=== PATIENT | female | born 1965 | race Caucasian/White ===

== ENCOUNTER 2018-09-08 14:24 | Inpatient (IN) | payer BC ==
[~2018-09-08 14:24] MED LIST: ISOVUE-370 76%-LOCM 1 ML ONE
--- NOTE | 2018-09-08 16:01 | CT ---
CT OF BRAIN PERFORMED WITHOUT CONTRAST ENHANCEMENT: Date: 09/08/18 HISTORY: Stroke alert. Confusion and memory problems. COMPARISON: 04/22/13 study. FINDINGS: The ventricular and cisternal system is within normal limits. There are no signs of intracerebral hem orrhage or extra-axial fluid collections. The mastoid air cells are developmentally poorly aerated. T he visualized sinuses are clear. IMPRESSION: No acute intracranial abnormalities. Findings telephoned to Dr. Soriano at 1552 hours. CODE CR. POS: [facility]
[2018-09-08 16:08] LABS: Base Excess-Venous 7.4 mmol/L (0 (+/- 2.5)); Bicarbonate (HCO3v) 30.8 mmol/L (22.0-29.0); CO2 Tension (PvCO2) 38.1 mmHg (41.0-51.0); Calcium, Ionized 1.02 mmol/L (1.12-1.32); Hemoglobin - Calc 14.1 g/dL (12.0-18.0); Lactate 1.38 mmol/L (0.50-2.20); O2 Tension (PvO2) 38.6 mmHg (35.0-45.0); pH (Venous) 7.516 (7.35-7.45); vO2 Saturation-calc 78.8 % (94-98)
[2018-09-08 16:18] LABS: Hemoglobin 13.9 g/dL (12.0-16.0); Mean Corpuscular HGB CONC 36.1 g/dL (32.0-36.0); Mean Corpuscular Hemoglobin 38.5 pg (27.0-31.0); Mean Platelet Volume 8.4 fL (7.4-10.4); Platelet Count 157 thou/uL (130-400); RBC Distribution Width 14.1 % (11.5-14.5); Red Blood Cell (RBC) Count 3.61 mill/uL (4.20-5.40); White Blood Cell (WBC) Count 12.5 thou/uL (4.8-10.8)
--- NOTE | 2018-09-08 16:22 | RAD ---
AP VIEW CHEST: 09/08/18 HISTORY: Altered mental status. Chest pain. AP view chest is obtained on 09/08/18. Comparison made to a previous exam from 04/23/13. AP view chest demonstrates the lungs to be well aerated. No evidence of active intrathoracic disease seen. No evidence of effusions, pneumonia, or pneumothorax seen. IMPRESSION: Unremarkable AP view chest. POS: [facility]
[2018-09-08] MEDS ORDERED: Pot Chloride/Pot Bicarb/Cit Ac 25 mEq Effervescent Tablet ONE (16:26)
[2018-09-08] MEDS ORDERED: Ondansetron PF 4 MG/2 ML Vial ONE (16:26)
[2018-09-08] MEDS ORDERED: Promethazine HCl 25 MG/ML VIAL ONE (16:36)
[2018-09-08] MEDS ORDERED: Pantoprazole 40 MG VIAL ONE (16:36)
[2018-09-08 16:41] LABS: ALT (SGPT) 188 U/L (8-55); AST (SGOT) 219 U/L (5-34); Acetaminophen Less than 6.0 mcg/mL (10.0-30.0); Albumin 4.5 g/dL (3.5-5.0); Alcohol Less than 10 mg/dL (Less than 10); Alkaline Phosphatase 78 U/L (40-150); Anion Gap 21 mmol/L (10-20); BUN (Urea Nitrogen) 32 mg/dL (9.8-20.1); Bilirubin, Total 0.7 mg/dL (0.2-1.2); Calc. Creatinine Clearance 0 mL/min (70-130); Carbon Dioxide 27 mmol/L (22-29); Chloride 75 mmol/L (98-107); Estimated GFR-MDRD 47; Globulin 2.6 g/dL (2.4-3.5); Glucose 106 mg/dL (70-105); Protein, Total 7.1 g/dL (6.0-8.3); Salicylate Less than 8.0 mg/dL (15.0-30.0); Sodium 121 mmol/L (136-145)
[2018-09-08 16:43] LABS: Band 8 % (5-11); Lymphocytes 16 % (21-51); MDiff Complete? YES; Macrocytosis SLIGHT = 6-15 cells (100X) (0-5/hpf); Monocytes 10 % (0-10); Neutrophil 65 % (42-75); Platelet Morphology Comment Appears Adequate; Polychromasia SLIGHT = 2-3 cells (100X) (0-2/hpf); Reactive Lymphocytes 1 % (0-10); Toxic Granulation SLIGHT
--- NOTE | 2018-09-08 16:43 | CT ---
CT ANGIOGRAM HEAD WITH CONTRAST CT ANGIOGRAM NECK WITH CONTRAST: Date: 09/08/18 HISTORY: 52-year-old female with altered mental status and worsening generalized weakness, confusion, and cem ry loss. Dr. Alonso gave the stroke alert protocol report by telephone to the person answering Dr. Gil' teleph one at 1612 hours on 09/08/18. TECHNIQUE: IV injection of 100 mL [id number]. Arterial bolus chasing technique scan from several centimeters inferior to the vandana to vertex of he ad. Coronal and sagittal 3D MIP reconstructions. FINDINGS: No evidence of occlusion or high grade stenosis of M1 segments of bilateral middle cerebral arteries. No acquired short segmental focal stenosis of the A1 and A2 segments of bilateral anterior cerebral a rteries. The right anterior cerebral artery is developmentally diminutive. Bilateral carotid siphons, basilar artery, posterior cerebral arteries, and superior cerebellar arter ies, appear normal. Intracranial left vertebral artery is normal. The right vertebral artery is diminutive and terminates in PICA. The left vertebral artery is dominant and normal in caliber. No stenosis of the bilateral carotid siphons or the cervical portions of bilateral internal carotid a rteries, common carotid arteries, brachiocephalic artery, or right subclavian artery. No significant calcified plaque visualized. IMPRESSION: Essentially normal. CODE CR. POS: [facility]
[2018-09-08] MEDS ORDERED: Potassium Chloride 20 MEQ in Premix Bag 1 BAG IVPB SCH (17:00)
[2018-09-08] MEDS ORDERED: Ketorolac Tromethamine 30 MG/ML VIAL ONE (18:43)
[2018-09-08 18:53] LABS: Bilirubin Negative (Negative); Blood, Urine Negative (Negative); Clarity CLEAR (Clear); Glucose, Urine (Dipstick) Negative (Negative); Leukocyte Negative (Negative); Nitrite Negative (Negative); Protein, Urine (Dipstick) Negative (Neg-Trace); Specific Gravity, Urine 1.031 (1.002-1.036); Urobilinogen 0.2 mg/dL (0.2-1.0)
[2018-09-08 19:05] LABS: Amphetamine Not Detected (NotDetected); Barbiturates Screen Not Detected (NotDetected); Benzodiazepine Screen Not Detected (NotDetected); Cocaine Metabolite Screen Not Detected (NotDetected); Medtox Control Line Valid? VALID (VALID); Medtox Reader # READER 4; Methadone Not Detected (NotDetected); Methamphetamine Not Detected (NotDetected); Opiate Screen Not Detected (NotDetected); Oxycodone Screen Not Detected (NotDetected); Phencyclidine (PCP) Not Detected (NotDetected); THC/Cannabinoid Screen Not Detected (NotDetected); Tricyclic Screen Not Detected (NotDetected)
[2018-09-08] MEDS ORDERED: Ondansetron ODT 4 MG TAB SL PRN (19:42)
[2018-09-08] MEDS ORDERED: Ondansetron PF 4 MG/2 ML Vial IVP PRN ×2 (19:42→20:05)
[2018-09-08] MEDS ORDERED: Acetaminophen 325 MG TAB PO PRN (19:42)
[2018-09-08] MEDS ORDERED: NS 0.9% w/ 20 MEQ KCL 1,000 ML IV SCH (19:42)
[2018-09-08] MEDS ORDERED: Sodium Chloride 0.9% 1,000 ML IV SCH (20:05)
[2018-09-08] MEDS ORDERED: Pantoprazole 40 MG VIAL IVP SCH (20:05)
[2018-09-08] MEDS ORDERED: Acetaminophen 650 MG Suppository PR PRN (20:05)
[2018-09-08] MEDS ORDERED: Loperamide HCl 2 MG CAP PO PRN (20:05)
[2018-09-08] MEDS ORDERED: Aspirin 81 mg Enteric Coated Tablet PO SCH (20:05)
[2018-09-08] MEDS ORDERED: Senokot S 8.6-50 MG TAB PO PRN (20:05)
[2018-09-08 20:36] LABS: Anion Gap 16 mmol/L (10-20); BUN (Urea Nitrogen) 26 mg/dL (9.8-20.1); Calc. Creatinine Clearance 0 mL/min (70-130); Calcium 8.9 mg/dL (7.8-10.44); Carbon Dioxide 27 mmol/L (22-29); Chloride 84 mmol/L (98-107); Estimated GFR-MDRD 51; Glucose 88 mg/dL (70-105); Magnesium 1.6 mg/dL (1.6-2.6); Sodium 124 mmol/L (136-145)
[2018-09-08 20:40] LABS: Potassium 2.5 mmol/L (3.5-5.1)
[2018-09-08] MEDS ORDERED: Potassium Chloride 20 MEQ/100 ML PREMIX BAG IVPB SCH (21:00)
[2018-09-08] MEDS: Atenolol 50 MG TAB PO SCH (21:13)
[2018-09-08] MEDS ORDERED: Promethazine HCl 25 MG in Sodium Chloride 0.9% 50 ML IVPB PRN (21:30)
--- NOTE | 2018-09-08 21:31 | PDOC.EVN ---
Event Note - Event Note Event Note: RN called - Patient unable to tolerate PO Potassium. Added 40 meq in IV NS for 1 liter.
--- NOTE | 2018-09-08 21:44 | HP ---
PRIMARY CARE PHYSICIAN: Dr. J Carlos Ferrer at [facility] [place]. CHIEF COMPLAINT: Weakness and trouble swallowing. HISTORY OF PRESENT ILLNESS: This is a 52-year-old white female with a history of hypertension and paroxysmal SVT, who has had about 2 weeks of severe nausea and vomiting. At one point, she was vomiting 20 times per day, vomiting up bilious fluid, but never any blood or coffee-grounds emesis. She reports that the vomiting calmed down about 3 days ago. She does not really remember much of the time before that because it was so intense. At that time, she noted whenever she stood up she felt a little bit weak; her left side felt odd, and maybe a little weaker than the right. She also felt dizzy with standing and she reports she started to get a tightness in her throat and all the way down her esophagus. This prevented her from swallowing any solids. She has had to drink only liquids since then and dissolve her pills in water before taking them in order to get them down. She reports that over the last 3 days, she has also developed severe watery diarrhea, about 10 times yesterday including incontinence. She has only had it 4 times a day and she has not been incontinent today. She had significantly decreased urine output with the vomiting, has urinated a little bit more today, but not much. She is only able to take little sips of water. She also feels weak all over and says she feels a little confused. The patient was evaluated in the emergency room. She initially had a CT of the brain, which was negative and a CT angiography, which was also negative. Her lab work showed a low sodium of 121 and a low potassium of 2.0 and she is getting IV replacement right now, and is being admitted to the stroke floor. PAST MEDICAL HISTORY: 1. Hypertension. 2. Paroxysmal SVT, controlled if she takes daily atenolol. 3. Previous kidney stones. 4. Previous hypokalemia. PAST SURGICAL HISTORY: 1. Tonsillectomy. 2. Cholecystectomy. 3. Hysterectomy. 4. Appendectomy. 5. Stents for kidney stone removal. 6. Percutaneous removal of some disk fragments from her lumbar spine in the . SOCIAL HISTORY: The patient used to smoke tobacco and marijuana, but quit in her 20s when she started having children. She denies any current regular use, though she did have some marijuana brownies about a year ago; this one brought from [place]. The patient is , lives with her . She has 4 kids who are all grown and out of the house. FAMILY HISTORY: Positive for diabetes and hypertension in multiple family members and her maternal grandfather who had of heart attack at 65 years old. ALLERGIES: PENICILLIN CAUSES WHEEZING, CHEST TIGHTNESS, AND NUMBNESS. CURRENT MEDICATIONS: 1. Atenolol 50 mg twice a day. 2. Lisinopril 10 mg daily. 3. VESIcare p.r.n. REVIEW OF SYSTEMS: CONSTITUTIONAL: No fevers, no chills. She has had the weakness as per the HPI. EYES: No double vision or blurred vision. ENT: She has had some runny nose and some sore throat as per HPI and difficulty swallowing as per HPI. CARDIOVASCULAR: She has the tightness in her chest that goes up into her throat, it is worse with swallowing anything, but no other chest pain. No palpitations or racing. PULMONARY: No coughing, no wheezing, no shortness of breath. GASTROINTESTINAL: See HPI. Her stomach now is a little bit sore, but not hurting her currently. GENITOURINARY: See HPI. No dysuria or hematuria. MUSCULOSKELETAL: No muscle aches or joint pains that she noted. SKIN: No rashes or other lesions she has noted. NEUROLOGIC: See HPI. No numbness or tingling anywhere. PHYSICAL EXAMINATION: VITAL SIGNS: Blood pressure 109/74, pulse 78, respirations 20, O2 saturation 98% on room air, temperature 98.7. CONSTITUTIONAL: She does report some severe pain in her throat and right shoulder, but does not look uncomfortable or in any distress. GENERAL: This is a well developed, obese white female. HEENT: Pupils equal, round, and reactive to light. Oropharynx with some mild erythema in the posterior oropharynx, but no swelling noted. No swelling of the tongue. No exudates. NECK: Supple. No lymphadenopathy. No thyroid nodules or enlargement. No JVD. No significant tenderness to palpation. HEART: Regular rate and rhythm. No murmurs, rubs, or gallops. LUNGS: Clear to auscultation bilaterally. No wheezes, crackles, or rhonchi. ABDOMEN: Soft and nontender to palpation. Normoactive bowel sounds. No hepatosplenomegaly or other masses. EXTREMITIES: No clubbing, cyanosis, or edema. SKIN: No rashes or other lesions noted. NEUROLOGIC: Cranial nerves are intact 2 through 12 bilaterally without any facial droop. Her reflexes are equal in all extremities. She does report some weakness in her left arm and left leg compared to her right; however, she uses these easily when not examined. When I did examine, she would then let the left suddenly drop to the bed. When I asked her to life up, she would lift the left up much slower and when I asked for resistance, she would start resisting equally just a little bit on both sides and then she would start increasing her strength on the right side. PSYCHIATRIC: The patient is alert and oriented x3. She has an odd affect. DIAGNOSTIC STUDIES: White blood cell count 12.5 with normal differential. Normal hemoglobin and hematocrit. Normal platelets. Her MCV of her red blood cells is elevated though at 107. Blood gas initially showed a pH of 7.5 and a pCO2 of 38, and apparently the patient was hyperventilating a little bit earlier in the emergency room. She looks much more comfortable now. Complete metabolic panel notable for a sodium of 121, potassium 2.0, chloride of 75, bicarb of 27, anion gap of 21, BUN of 32, creatinine of 1.21; recheck an hour later on her venous blood gas was 1.17; glucose of 106, and AST is elevated at 218, ALT at 188. The rest was normal. Her ammonia was negative. Her troponin was negative x1. Her TSH was elevated at 7.2. Urinalysis was positive only for some ketones. Urine drug screen was negative for any illicit drugs. Her plasma alcohol was negative as was her salicylates. CT of the brain and CT angiography of the head as above and were negative. Chest x-ray; I did review the chest x-ray done in the emergency room along with the radiologist's report; it shows no active cardiopulmonary disease. EKG; I did review the EKG done in the emergency room; it does show normal sinus rhythm and does have some QT prolongation and some ST abnormalities, but no elevations and it does not have any evidence of T-wave abnormalities from the low potassium. The patient's EKG does not show any signs of flattening of the T-waves at this time. ASSESSMENT AND PLAN: 1. Hyponatremia. This may be the source of patient's odd affect and possible psychogenic source of her weakness on the left side, likely due to her vomiting and diarrhea with volume depletion as well as poor salt intake. We will continue IV fluid replacement with normal saline. This is not severely low and so she would not be in any significant risk from replacement too quickly. 2. Hypokalemia, likely due to the diarrhea as well as the previous vomiting. The patient has a history of losing potassium easily. We will replete her IV since she cannot swallow the large tablets right now. She already got a dose in the emergency room. I will check potassium now and then give her another potassium cocktail depending on the results. 3. Left-sided weakness, I believe due to her exam, this is most likely psychogenic; however, she does have a history of hypertension and so we will go ahead and get an MRI of the brain and a Neurology consult to make sure she has not had an ischemic event; it was done multiple days ago and she is far beyond the window of any sort of treatment. I will go ahead and start the patient on a baby aspirin a day and check her lipid profile in the morning. 4. Sore throat with dysphagia. The patient reports tightness of her throat and pain. This is most likely from the trauma from the repetitive vomiting over the last 2 weeks. She is able to take fluids right now and is not having any trouble with breathing. We will give her a small dose of anti-inflammatory for pain of Toradol, anti-inflammatory for pain, though we will keep an eye on her creatinine with this and see if this improves. We will also have Speech Therapy evaluate her swallow. If she continues to have severe pain and inability to swallow food, then we will get a Gastroenterology consult for endoscopy. 5. Nausea, vomiting, and diarrhea; most likely some sort of infectious etiology, though the length and severity of the vomiting opens the possibility of some other etiology as well. The nausea and vomiting seemed to have resolved at this point. We will give her Zofran as needed if she does have any more and the diarrhea has calmed down today as well. We will do stool studies should she have increasing amounts of diarrhea or worsening symptoms in the hospital. 6. Hypertension. We will resume the patient's home blood pressure medications. 7. History of paroxysmal supraventricular tachycardia. We will continue the patient's atenolol and we will watch her on desk monitor. 8. Gastrointestinal prophylaxis and treatment of this esophageal spasm. We will start the patient on Protonix IV. 9. Deep venous thrombosis prophylaxis. We will put the patient on SCDs while in bed and encourage ambulation. 10. Code status; I did discuss this with the patient. She is a full code. Should she be incapacitated, her will be her medical decision maker; his name is Bc Hawley. Job ID: [id number]
[2018-09-08 22:09] LABS: HBCM Index 0.05 S/CO (0-0.79); HBSAg Index 0.24 S/CO (0-0.99); Hep A IgM AB Non-Reactive (NonReactive); Hep A IgM S/CO 0.07 S/CO (0-0.79); Hep B Surf Ag Non-Reactive S/CO (NonReactive); Hep C IgG Ab Non-Reactive (NonReactive); Hep C Index 0.04 S/CO (0-0.79); Hepatitis B Core IgM Abs Non-Reactive (NonReactive)
--- NOTE | 2018-09-08 22:34 | ULT ---
HISTORY: Elevated liver function enzymes. Multiple longitudinal and transverse images of the right upper quadrant of the abdomen is obtained us ing multihertz curvilinear transducer. Real time, color flow and spectral waveform doppler analysis demonstrates hepatomegaly. Fibrofatty ch anges seen in the liver. Normal hepatopedal flow is seen. The gallbladder is unremarkable. No evidence of gallstones seen. The common bile duct is normal size measuring 3.7 mm. The visualized portions of the pancreas is unremarkable. No evidence of ascites seen. The right kidne y is unremarkable. IMPRESSION: Hepatomegaly. POS: [facility]
[2018-09-09] MEDS: NS 0.9% w/ 40 MEQ KCL 1,000 ML IV SCH ×2 (00:30→09:12)
[2018-09-09 05:41] LABS: Anion Gap 20 mmol/L (10-20); BUN (Urea Nitrogen) 24 mg/dL (9.8-20.1); Band 1 % (5-11); Calc. Creatinine Clearance 95 mL/min (70-130); Calcium 8.8 mg/dL (7.8-10.44); Carbon Dioxide 22 mmol/L (22-29); Cardiac Risk 2.4 (Less than 4.5); Chloride 89 mmol/L (98-107); Cholesterol 146 mg/dl (< 200 Desired); Estimated GFR-MDRD 62; Glucose 80 mg/dL (70-105); HDL Cholesterol 62 mg/dL (>60 Neg Risk); Hemoglobin 11.9 g/dL (12.0-16.0); Lymphocytes 28 % (21-51); MDiff Complete? YES; Macrocytosis SLIGHT = 6-15 cells (100X) (0-5/hpf); Mean Corpuscular HGB CONC 35.7 g/dL (32.0-36.0); Mean Corpuscular Hemoglobin 38.5 pg (27.0-31.0); Mean Platelet Volume 8.2 fL (7.4-10.4); Monocytes 12 % (0-10); Neutrophil 59 % (42-75); Platelet Count 138 thou/uL (130-400); Platelet Morphology Comment Appears Adequate; RBC Distribution Width 14.2 % (11.5-14.5); Red Blood Cell (RBC) Count 3.08 mill/uL (4.20-5.40); Sodium 128 mmol/L (136-145); White Blood Cell (WBC) Count 9.2 thou/uL (4.8-10.8)
[2018-09-09 05:44] LABS: Potassium 2.8 mmol/L (3.5-5.1)
[2018-09-09] MEDS ORDERED: Potassium Chloride 40 MEQ in Premix Bag 1 BAG IVPB SCH (05:45)
[2018-09-09 05:48] LABS: Free T4 (Free Thyroxine) 1.01 ng/dL (0.70-1.48)
[2018-09-09 05:49] LABS: Triglycerides 97 mg/dL (Less than 150)
[2018-09-09] MEDS ORDERED: Magnesium 2 GM/50 ML 2 GM in Premix Bag 1 BAG IVPB SCH (06:00)
[2018-09-09] MEDS ORDERED: Magnesium Sulfate 2 GM in Sodium Chloride 0.9% 100 ML IVPB SCH (06:00)
[2018-09-09 06:01] LABS: LDL Cholesterol, Calculated 65 mg/dL
[2018-09-09] MEDS: Potassium Chloride 20 MEQ in Premix Bag 1 BAG IVPB SCH ×2 (06:20→13:01)
[2018-09-09] MEDS: Aspirin 81 mg Enteric Coated Tablet PO SCH (09:01)
[2018-09-09] MEDS: Atenolol 50 MG TAB PO SCH ×3 (09:01→20:48)
[2018-09-09] MEDS: Pantoprazole 40 MG VIAL IVP SCH (09:02)
[2018-09-09] MEDS: Enoxaparin Sodium 30 MG/0.3 ML SYRINGE SC SCH (09:10)
[2018-09-09] MEDS: Sodium Chloride 0.9% 1,000 ML IV SCH ×2 (09:11→23:32)
[2018-09-09] MEDS ORDERED: Promethazine HCl 25 MG/ML VIAL IM/IV PRN (09:27)
--- NOTE | 2018-09-09 13:14 | CON ---
DATE OF CONSULTATION: 09/09/2018 NEUROLOGY CONSULTATION CONSULTING PHYSICIAN: Hospitalist Service. IMPRESSION: Psychogenic weakness. PLAN: As you care to pursue. HISTORY OF PRESENT ILLNESS: Ms. Hawley is a 52-year-old white female, who came in with a history of reported frequent vomiting and diarrhea. She was noted to be hyponatremic and hypokalemic. She reports that she felt like her left side was weak. CT and CTA of the brain and carotids were all unremarkable. PAST MEDICAL HISTORY: Otherwise negative. ALLERGIES: PENICILLIN. MEDICATIONS: 1. Lisinopril. 2. Atenolol. SOCIAL HISTORY: Unremarkable. FAMILY HISTORY: Noncontributory. REVIEW OF SYSTEMS: Ten system review of systems is, otherwise, negative. PHYSICAL EXAMINATION: VITAL SIGNS: Blood pressure 91/54, pulse 61, respirations 20, and temperature 98.8. HEENT: Within normal limits. NECK: Supple. EXTREMITIES: No cyanosis, clubbing, or edema. NEUROLOGIC: She is alert and appropriate. She follows commands appropriately. Her speech was fluent and clear. There was no cranial nerve asymmetry in testing. On her upper extremity, she inappropriately had drift and faint weakness on the left side. No abnormal movements were seen. Gait was not tested. DIAGNOSTIC DATA: Laboratory studies were reviewed. Imaging was reviewed. SUMMARY: A middle-aged woman with faint left-sided weakness. We can pursue further testing as you deem fit. Job ID: [id number]
--- NOTE | 2018-09-09 13:16 | PDOC.PN ---
- Subjective Encounter Start Date: 09/09/18 Encounter Start Time: 07:00 Pt seen for followup re: hyponatremia. Reports difficulty eating. Denies chest pain. - Objective Resuscitation Status - Order Detail: 09/08/18 18:43 Resuscitation Status Routine Resuscitation Status: FULL: Full Resuscitation Discussed with: Patient KELIN Reviewed: Yes Vital Signs & Weight: Vital Signs (12 hours) Temp Pulse Resp BP Pulse Ox 09/09/18 11:42 98.8 F 97 16 109/73 99 09/09/18 09:06 61 09/09/18 07:44 98.8 F 61 20 102/71 94 L 09/09/18 05:00 91/54 L 09/09/18 04:50 99.5 F 73 14 80/46 L 98 Weight Weight 192 lb 11.2 oz I&O: 09/08/18 09/09/18 09/10/18 06:59 06:59 06:59 Intake Total 1250 Balance 1250 Result Diagrams: 09/09/18 04:19 09/09/18 04:19 Additional Labs: Accuchecks 09/08/18 15:48 POC Glucose 129 H EKG Reviewed by me: Yes (Tele: NSR) Phys Exam - Physical Examination Constitutional: NAD HEENT: moist MMs, sclera anicteric, oral pharynx no lesions, 2+ tonsils Neck: no nodes, no JVD, supple, full ROM Respiratory: clear to auscultation bilateral Cardiovascular: RRR, no rub S1, S2 Gastrointestinal: soft, non-tender, no distention, positive bowel sounds Neurological: moves all 4 limbs Psychiatric: normal affect, A&O x 3 Dx/Plan (1) Hyponatremia Code(s): E87.1 - HYPO-OSMOLALITY AND HYPONATREMIA Status: Acute Comment: sodium improved to 128 today (2) Hypokalemia Code(s): E87.6 - HYPOKALEMIA Status: Acute Comment: replace potassium and recheck (3) Left-sided weakness Code(s): R53.1 - WEAKNESS Status: Acute Comment: await neurology consult (4) Dysphagia Code(s): R13.10 - DYSPHAGIA, UNSPECIFIED Status: Acute Comment: await GI consult (5) Abnormal LFTs Code(s): R94.5 - ABNORMAL RESULTS OF LIVER FUNCTION STUDIES Status: Acute Comment: isolated transaminitis, check CK level. (6) HTN (hypertension) Code(s): I10 - ESSENTIAL (PRIMARY) HYPERTENSION Status: Chronic Comment: controlled - Plan * . Review of Systems - Review of Systems Constitutional: weakness. negative: fever, chills, sweats, malaise Respiratory: negative: Cough, Shortness of Breath, SOB with Excertion, Pleuritic Pain, Wheezing Cardiovascular: negative: chest pain, palpitations, orthopnea, paroxysmal nocturnal dyspnea, edema, light headedness Gastrointestinal: Other (dysphagia). negative: Nausea, Vomiting, Abdominal Pain , Diarrhea, Constipation, Melena, Hematochezia Genitourinary: negative: Dysuria, Frequency, Incontinence, Hematuria, Retention Neurological: Weakness. negative: Numbness, Incoordination, Change in Speech, Confusion, Seizures - Medications/Allergies Allergies/Adverse Reactions: Allergies Allergy/AdvReac Type Severity Reaction Status Date / Time Penicillins Allergy Verified 09/09/18 01:46 Medications: Current Medications Acetaminophen (Tylenol) 650 mg PO Q4H PRN PRN Reason: Headache/Fever/Mild Pain (1-3) Acetaminophen (Tylenol) 650 mg [place] Q4H PRN PRN Reason: Headache/Fever/Mild Pain (1-3) Aspirin (Ecotrin) 81 mg PO DAILY [facility] Last Admin: 09/09/18 09:01 Dose: 81 mg Atenolol (Tenormin) 50 mg PO BID [facility] Last Admin: 09/09/18 09:06 Dose: Not Given Enoxaparin Sodium (Lovenox) 30 mg SC 0900 [facility] Last Admin: 09/09/18 09:10 Dose: 30 mg Sodium Chloride (Normal Saline 0.9%) 1,000 mls @ 100 mls/hr IV .Q10H [facility] Last Admin: 09/09/18 09:11 Dose: Not Given Ketorolac Tromethamine (Toradol) 15 mg IVP Q6H PRN PRN Reason: Pain Stop: 09/13/18 18:29 Loperamide HCl (Imodium) 2 mg PO PRN PRN PRN Reason: Diarrhea/Loose Stools Ondansetron HCl (Zofran Odt) 4 mg PO Q6H PRN PRN Reason: Nausea/Vomiting Ondansetron HCl (Zofran) 4 mg IVP Q6H PRN PRN Reason: Nausea/Vomiting Pantoprazole Sodium (Protonix) 40 mg IVP DAILY [facility] Last Admin: 09/09/18 09:02 Dose: 40 mg Potassium Chloride (Klor-Con) 50 meq PO Q6H [facility] Stop: 09/09/18 14:01 Last Admin: 09/09/18 13:03 Dose: Not Given Promethazine HCl (Phenergan) 25 mg IM/IV Q8H PRN PRN Reason: Nausea/Vomiting Last Admin: 09/09/18 11:01 Dose: 25 mg Senna/Docusate Sodium (Senokot S) 2 tab PO BID PRN PRN Reason: Constipation Sodium Chloride (Flush - Normal Saline) 10 ml IVF Q12HR [facility] Last Admin: 09/09/18 09:12 Dose: 10 ml Sodium Chloride (Flush - Normal Saline) 10 ml IVF PRN PRN PRN Reason: Saline Flush
[2018-09-09] MEDS ORDERED: ALPRAZolam 0.25 MG TAB PO SCH (14:00)
--- NOTE | 2018-09-09 14:28 | MRI ---
MRI BRAIN WITHOUT CONTRAST: 09/09/2018 HISTORY: Transient ischemic attack. Weakness. COMPARISON: None. TECHNIQUE: Multiplanar, multisequence MR imaging of the brain is obtained without contrast. FINDINGS: The diffusion-weighted imaging demonstrates no evidence for acute infarction. A partially empty sella turcica is noted. Detailed assessment is somewhat limited secondary to persistent patient head motion artifact. The ax ial gradient echo imaging demonstrates no evidence for intracranial hemorrhage. Axial FLAIR imaging demonstrates no focal area of signal abnormality. There is partial opacification of the mastoid air cells and tympanic cavity, right greater than left. Arterial flow voids at the axial level of the skull base demonstrate nonvisualization of the distal vertebral artery on the right, which could be secondary to hypoplasia or occlusion. IMPRESSION: Motion limited examination, demonstrating no evidence for acute infarction. POS: [facility]
--- NOTE | 2018-09-09 17:00 | CON ---
DATE OF CONSULTATION: 09/09/2018 This is a GI inpatient consultation note. REQUESTING PHYSICIAN: Alex Catalan MD REASON FOR CONSULTATION: Trouble swallowing. HISTORY OF PRESENT ILLNESS: Eloina Hawley is a 52-year-old woman with a history of hypertension and paroxysmal SVT. She was admitted to the hospital yesterday with altered mental status and significant electrolyte abnormalities with dehydration, complaining of feeling weak all over, confusion, and difficulty swallowing. She said she was in her normal state of health until about 2 weeks ago, at that time she developed severe nausea and vomiting as well as diarrhea. She was vomiting up bilious fluid, never-ending hematemesis over 20 times per day. The vomiting was quite severe. At one point, she felt like she might have crepitus under the chest wall, but this has since resolved. The vomiting stopped about 3 days ago, but ever since then, she has had a tightness and a burning sensation in her throat and every time she tries to swallow food or even water, she has severe discomfort. She is able to get water down, but not really wanting any solid food at this point. Upon admission, she had severe hypokalemia with a potassium of 2.0 and hyponatremia with a sodium of 117. Electrolytes have improved over the course of the night. She says she is feeling quite a bit better, but her primary complaint remains severe pain in the upper chest and throat area whenever she swallows. She said she has never undergone any EGD. She really does not have any chronic gastrointestinal symptoms such as chronic heartburn. REVIEW OF SYSTEMS: Full review of systems including constitutional, head, eyes, ears, nose, throat, GI, , cardiovascular, respiratory, musculoskeletal, neurologic systems is negative except as noted in the HPI. PAST MEDICAL HISTORY: Hypertension; paroxysmal SVT; kidney stones; previous hypokalemia; cholecystectomy; hysterectomy; appendectomy; kidney stone, requiring ureteral stent; lumbar spine surgery; tonsillectomy. SOCIAL HISTORY: Used to smoke tobacco and marijuana, but quit over 20 years ago. FAMILY HISTORY: Noncontributory. ALLERGIES: PENICILLIN. OUTPATIENT MEDICATIONS: 1. Atenolol. 2. Lisinopril. 3. VESIcare. INPATIENT MEDICATIONS: 1. Protonix 40 mg IV daily. 2. Lovenox subcu. 3. Aspirin 81 mg daily. PHYSICAL EXAMINATION: VITAL SIGNS: Temperature 98.8, pulse 61, blood pressure 102/71, and 94% oxygen saturation on room air. GENERAL: A 52-year-old woman, lying in bed comfortably, in no acute distress. MENTAL: Her affect is somewhat manic. She is easily redirectable and can give a coherent history, but is a bit agitated. SKIN: No jaundice. No rashes were palpable. EYES: No scleral icterus. Extraocular movements intact. ENT: Mucous membranes moist. No oral lesions. LYMPH: No submandibular or supraclavicular lymphadenopathy. THYROID: Nontender to palpation. On palpation of the neck and upper chest, I am unable to palpate any crepitus. HEART: Regular rate and rhythm. LUNGS: Clear to auscultation bilaterally. ABDOMEN: Bowel sounds present. Soft and nontender to palpation throughout. EXTREMITIES: No peripheral edema. VESSELS: Radial pulses 2+ bilaterally. NEUROLOGIC: Cranial nerves 2 through 12 intact bilaterally. LABORATORY STUDIES: Sodium is up to 128, potassium up to 2.8, BUN 24, creatinine 0.94. Troponin negative. BNP only 72.4. Admission LFTs were elevated with total bilirubin 0.7, alkaline phosphatase 78, AST 219, ALT 188. Ammonia was only 30. Albumin normal at 4.5. TSH was elevated at 7.23. Urinalysis is negative. Drug screen was negative. Alcohol level undetectable. Viral hepatitis serologies negative. IMAGING STUDIES: CT angiogram of the brain was essentially normal. Chest x-ray was unremarkable. Abdominal ultrasound shows some hepatomegaly, but normal appearing gallbladder, normal common bile duct, measuring 3.7 cm. ASSESSMENT AND PLAN: 1. Dysphagia. 2. Odynophagia. 3. Nausea and vomiting, improved. The patient's primary complaint is this dysphagia and odynophagia, which have persisted even though the vomiting is improved over the past 3 days. I think her recent symptoms were likely related to an acute infectious gastroenteritis, which now seems to have resolved. She was quite dehydrated and electrolytes are currently being corrected. I think it is likely that she probably has severe esophagitis at this point related to all the vomiting. If she did have a microperforation causing crepitus over the past week, that crepitus is no longer apparent and there is no free air or subcutaneous air evident on chest x-ray. Given her ongoing dysphagia and odynophagia symptoms, I do think it would be worthwhile to perform EGD for further investigation. We will plan to get this done tomorrow morning. I agree with the daily IV PPI in the meantime. Elevated LFTs, AST and ALT were elevated upon presentation. Note, the normal abdominal ultrasound, negative viral hepatitis serologies, would recommend trending LFTs and also checking a lipase with morning labs tomorrow. This may just be related to fatty liver disease and reactive from her severe dehydration. Further recommendations following EGD tomorrow. Thank you for the consultation. Please call back with any questions or concerns. Job ID: [id number]
[2018-09-09] MEDS: Promethazine HCl 25 MG in Sodium Chloride 0.9% 50 ML IVPB PRN (20:24)
[2018-09-09] MEDS: NS 0.9% w/ 20 MEQ KCL 1,000 ML IV SCH (20:25)
[2018-09-09] MEDS: Ondansetron ODT 4 MG TAB PO PRN (20:42)
[2018-09-10 05:23] LABS: Anion Gap 13 mmol/L (10-20); BUN (Urea Nitrogen) 8 mg/dL (9.8-20.1); Calc. Creatinine Clearance 118 mL/min (70-130); Calcium 8.2 mg/dL (7.8-10.44); Carbon Dioxide 23 mmol/L (22-29); Chloride 98 mmol/L (98-107); Estimated GFR-MDRD 80; Glucose 118 mg/dL (70-105); Sodium 131 mmol/L (136-145)
[2018-09-10 05:28] LABS: Potassium 2.8 mmol/L (3.5-5.1)
[2018-09-10 05:35] LABS: ALT (SGPT) 103 U/L (8-55); AST (SGOT) 83 U/L (5-34); Albumin 3.3 g/dL (3.5-5.0); Alkaline Phosphatase 54 U/L (40-150); Bilirubin, Direct 0.3 mg/dL (0.1-0.3); Bilirubin, Total 0.4 mg/dL (0.2-1.2); Lipase 43 U/L (8-78); Protein, Total 5.1 g/dL (6.0-8.3)
[2018-09-10] MEDS: NS 0.9% w/ 20 MEQ KCL 1,000 ML IV SCH ×3 (05:41→23:41)
[2018-09-10] MEDS ORDERED: Potassium Chloride 40 MEQ in Sodium Chloride 0.9% 500 ML IVPB SCH (05:45)
[2018-09-10] MEDS ORDERED: Promethazine HCl 25 MG in Sodium Chloride 0.9% 50 ML IVPB PRN (06:02)
[2018-09-10] MEDS: Promethazine HCl 25 MG in Sodium Chloride 0.9% 50 ML IVPB PRN ×2 (06:14→20:19)
[2018-09-10] MEDS: Pantoprazole 40 MG VIAL IVP SCH ×2 (09:23→19:57)
[2018-09-10] MEDS: Atenolol 50 MG TAB PO SCH ×2 (09:25→20:05)
[2018-09-10] MEDS: Morphine 2 MG/ML SYRINGE SLOW IVP PRN ×3 (09:37→20:11)
--- NOTE | 2018-09-10 10:29 | PDOC.PN ---
- Subjective Encounter Start Date: 09/10/18 Encounter Start Time: 07:20 Pt seen for followup re: - Objective Resuscitation Status - Order Detail: 09/08/18 18:43 Resuscitation Status Routine Resuscitation Status: FULL: Full Resuscitation Discussed with: Patient Vital Signs & Weight: Vital Signs (12 hours) Temp Pulse Resp BP Pulse Ox 09/10/18 09:25 66 09/10/18 07:42 99.0 F 81 18 122/79 98 09/10/18 04:00 98.5 F 73 18 101/59 L 98 09/10/18 00:00 99.7 F H 77 18 109/73 98 Weight Admit Weight 192 lb 11.2 oz Weight 193 lb 6.4 oz I&O: 09/09/18 09/10/18 09/11/18 06:59 06:59 06:59 Intake Total 1250 2407 Balance 1250 2407 Result Diagrams: 09/09/18 04:19 09/10/18 04:22 Phys Exam - Physical Examination Constitutional: NAD HEENT: moist MMs, sclera anicteric, oral pharynx no lesions, 2+ tonsils Neck: no nodes, no JVD, supple, full ROM Respiratory: clear to auscultation bilateral Cardiovascular: RRR, no rub S1, S2 Gastrointestinal: soft, non-tender, no distention, positive bowel sounds Neurological: moves all 4 limbs Psychiatric: normal affect, A&O x 3 Dx/Plan (1) Hyponatremia Code(s): E87.1 - HYPO-OSMOLALITY AND HYPONATREMIA Status: Acute Comment: sodium improved to 131 today (2) Hypokalemia Code(s): E87.6 - HYPOKALEMIA Status: Acute Comment: potassium still low at 2.8, replace (3) Dysphagia Code(s): R13.10 - DYSPHAGIA, UNSPECIFIED Status: Acute Comment: For EGD today (4) Abnormal LFTs Code(s): R94.5 - ABNORMAL RESULTS OF LIVER FUNCTION STUDIES Status: Acute Comment: isolated transaminitis (5) HTN (hypertension) Code(s): I10 - ESSENTIAL (PRIMARY) HYPERTENSION Status: Chronic Comment: controlled (6) Left-sided weakness Code(s): R53.1 - WEAKNESS Status: Resolved - Plan * . Review of Systems - Review of Systems Cardiovascular: negative: chest pain, palpitations, orthopnea, paroxysmal nocturnal dyspnea, edema, light headedness Gastrointestinal: Other (odynophagia, dysphagia). negative: Nausea, Vomiting, Abdominal Pain, Diarrhea, Constipation, Melena, Hematochezia Genitourinary: negative: Dysuria, Frequency, Incontinence, Hematuria, Retention Musculoskeletal: Shoulder Pain. negative: Neck Pain, Arm Pain, Back Pain, Hand Pain, Leg Pain, Foot Pain Skin: negative: Rash, Lesions, Eric, Bruising - Medications/Allergies Allergies/Adverse Reactions: Allergies Allergy/AdvReac Type Severity Reaction Status Date / Time Penicillins Allergy Verified 09/09/18 01:46 Medications: Current Medications Acetaminophen (Tylenol) 650 mg PO Q4H PRN PRN Reason: Headache/Fever/Mild Pain (1-3) Acetaminophen (Tylenol) 650 mg [place] Q4H PRN PRN Reason: Headache/Fever/Mild Pain (1-3) Alprazolam (Xanax) 0.25 mg PO BIDPRN PRN PRN Reason: Anxiety Aspirin (Ecotrin) 81 mg PO DAILY [facility] Last Admin: 09/09/18 09:01 Dose: 81 mg Atenolol (Tenormin) 50 mg PO BID [facility] Last Admin: 09/10/18 09:25 Dose: 50 mg Enoxaparin Sodium (Lovenox) 30 mg SC 0900 [facility] Last Admin: 09/09/18 09:10 Dose: 30 mg Potassium Chloride/Sodium Chloride (Ns 0.9% W/ 20 Meq Kcl) 1,000 mls @ 100 mls/ hr IV .Q10H [facility] Last Admin: 09/10/18 05:41 Dose: 1,000 mls Promethazine HCl 25 mg/ Sodium (Chloride) 51 mls @ 204 mls/hr IVPB Q6H PRN PRN Reason: Nausea Last Admin: 09/10/18 06:14 Dose: 51 mls Ketorolac Tromethamine (Toradol) 15 mg IVP Q6H PRN PRN Reason: Pain Stop: 09/13/18 18:29 Loperamide HCl (Imodium) 2 mg PO PRN PRN PRN Reason: Diarrhea/Loose Stools Morphine Sulfate (Morphine) 2 mg SLOW IVP Q4H PRN PRN Reason: Pain Last Admin: 09/10/18 09:37 Dose: 2 mg Ondansetron HCl (Zofran Odt) 4 mg PO Q6H PRN PRN Reason: Nausea/Vomiting Last Admin: 09/09/18 20:42 Dose: 4 mg Ondansetron HCl (Zofran) 4 mg IVP Q6H PRN PRN Reason: Nausea/Vomiting Pantoprazole Sodium (Protonix) 40 mg IVP DAILY [facility] Last Admin: 09/10/18 09:23 Dose: 40 mg Promethazine HCl (Phenergan) 25 mg IM/IV Q8H PRN PRN Reason: Nausea/Vomiting Last Admin: 09/09/18 11:01 Dose: 25 mg Senna/Docusate Sodium (Senokot S) 2 tab PO BID PRN PRN Reason: Constipation Sodium Chloride (Flush - Normal Saline) 10 ml IVF Q12HR [facility] Last Admin: 09/10/18 09:23 Dose: 10 ml Sodium Chloride (Flush - Normal Saline) 10 ml IVF PRN PRN PRN Reason: Saline Flush
[2018-09-10] MEDS ORDERED: Midazolam HCl 2 mg/2 ml Vial ONE (10:41)
[2018-09-10] MEDS ORDERED: PROPOFOL 200 MG/20 ML VIAL ONE (11:09)
--- NOTE | 2018-09-10 12:26 | OP ---
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 PROCEDURES PERFORMED: Esophagogastroduodenoscopy with biopsies. INDICATION: Dysphagia and odynophagia in the context of 2 weeks of recent nausea and vomiting. MEDICATIONS: See Anesthesia record. FINDINGS: After discussion of the risks, benefits, and alternatives of the procedure, informed consent was obtained and witnessed. Pre-endoscopic cardiopulmonary examination was satisfactory. Time-out was performed before sedation was achieved. Sedation was achieved with Anesthesia assistance in the endoscopy unit. A Pentax adult upper endoscope was placed into the oropharynx and passed through the cricopharyngeus under direct visualization. There is ulceration and erosion at the level of the upper esophageal sphincter. The remainder of the esophagus is diffusely erythematous and friable with several areas of erosion and denudation of the mucosa. There were no white plaques to suggest candidiasis. However, the esophagitis is really diffuse and quite severe. At the GE junction, there are several other areas of shallow ulceration. No significant bleeding. I obtained biopsies from the distal and mid esophagus for histology. The endoscope was advanced into the stomach. Forward and retroflexed views of the entire gastric mucosa were obtained. There is patchy erosive gastritis throughout the gastric fundus, body, and antrum. There were no large ulcerations. No bleeding noted. I did obtain biopsies in the gastric antrum and body to rule out H. pylori infection. The endoscope was passed through the pylorus and into the first and second portions of the duodenum, which appeared normal. The upper endoscope was then completely withdrawn, and the patient allowed to recover. The patient tolerated the procedure well. There were no immediate postprocedure complications. IMPRESSION: 1. Severe diffuse esophagitis with ulcerations at the upper esophageal sphincter and the gastroesophageal junction. Biopsies obtained. 2. Patchy erosive gastritis, biopsied. RECOMMENDATIONS: 1. Follow up pathology on the esophageal gastric biopsies. 2. IV proton pump inhibitor every 12 hours while inpatient. Upon hospital discharge, switch to p.o. twice daily dosing. 3. Add sucralfate 1 g 3 times daily. 4. Advance diet as tolerated. Job ID: [id number]
[2018-09-10] MEDS: Enoxaparin Sodium 30 MG/0.3 ML SYRINGE SC SCH (14:24)
[2018-09-10] MEDS: Aspirin 81 mg Enteric Coated Tablet PO SCH (14:25)
[2018-09-10] MEDS: Sucralfate 1 GM/10 ML UDCUP PO SCH ×2 (14:27→19:57)
[2018-09-10] MEDS: ALPRAZolam 0.25 MG TAB PO PRN (14:46)
[2018-09-10] MEDS: Acetaminophen 325 MG TAB PO PRN (20:24)
--- NOTE | 2018-09-10 23:05 | EKG ---
Test Reason : Blood Pressure : / mmHG Vent. Rate : 078 BPM Atrial Rate : 078 BPM P-R Int : 144 ms QRS Dur : 090 ms QT Int : 450 ms P-R-T Axes : 040 036 044 degrees QTc Int : 513 ms Normal sinus rhythm Junctional ST depression, probably normal Prolonged QT Abnormal ECG interference Confirmed by KERRI DESHPANDE, LAMAR ([id number]), desk editor AZEEM BOOTHE ([id number]) on 09/10/2018 11:05:39 PM Referred By: Confirmed By:LAMAR MANNING MD
[2018-09-11] MEDS: ALPRAZolam 0.25 MG TAB PO PRN ×2 (03:10→15:37)
[2018-09-11] MEDS: Morphine 2 MG/ML SYRINGE SLOW IVP PRN ×5 (03:11→21:53)
[2018-09-11] MEDS: Ketorolac Tromethamine 30 MG/ML VIAL IVP PRN ×3 (05:43→19:57)
[2018-09-11] MEDS: Sucralfate 1 GM/10 ML UDCUP PO SCH ×3 (09:04→20:23)
[2018-09-11] MEDS: Pantoprazole 40 MG VIAL IVP SCH ×2 (09:04→19:58)
[2018-09-11] MEDS: Enoxaparin Sodium 30 MG/0.3 ML SYRINGE SC SCH (09:05)
[2018-09-11] MEDS: Atenolol 50 MG TAB PO SCH ×2 (09:05→19:54)
[2018-09-11] MEDS: Acetaminophen 325 MG TAB PO PRN ×2 (09:05→19:57)
[2018-09-11] MEDS: Aspirin 81 mg Enteric Coated Tablet PO SCH (09:05)
[2018-09-11] MEDS: Promethazine HCl 25 MG in Sodium Chloride 0.9% 50 ML IVPB PRN (10:36)
--- NOTE | 2018-09-11 11:12 | PDOC.PN ---
- Subjective Encounter Start Date: 09/11/18 Encounter Start Time: 11:05 Subjective: f/u for esophagitis and multiple electrolyte abnormalities. Feels better -: overall and tolerating soft diet. No N/V. Still with some odynophagia - Objective Resuscitation Status - Order Detail: 09/08/18 18:43 Resuscitation Status Routine Resuscitation Status: FULL: Full Resuscitation Discussed with: Patient MAR Reviewed: Yes Vital Signs & Weight: Vital Signs (12 hours) Temp Pulse Resp BP BP Pulse Ox 09/11/18 09:05 80 120/78 09/11/18 07:41 100.8 F H 85 20 120/78 97 09/11/18 03:05 99.6 F 99 16 127/81 Weight Admit Weight 192 lb 11.2 oz Weight 201 lb 8 oz I&O: 09/10/18 09/11/18 09/12/18 06:59 06:59 06:59 Intake Total 2407 3015 Balance 2407 3015 Result Diagrams: 09/09/18 04:19 09/10/18 04:22 Additional Labs: Laboratory Tests 09/08/18 09/08/18 09/08/18 15:53 19:33 19:33 Sodium 121 L 124 L Potassium 2.0 L* 2.5 L* Creatine Kinase Hepatitis A IgM Ab Non-Reactive Hep Bs Antigen Non-Reactive Hep B Core IgM Ab Non-Reactive Hepatitis C Antibody Non-Reactive 09/09/18 09/10/18 09/10/18 04:19 04:22 15:34 Sodium 128 L 131 L Potassium 2.8 L* 2.8 L* Creatine Kinase 2768 H Hepatitis A IgM Ab Hep Bs Antigen Hep B Core IgM Ab Hepatitis C Antibody EKG Reviewed by me: Yes (Tele - SR) Phys Exam - Physical Examination Constitutional: NAD HEENT: PERRLA, sclera anicteric, oral pharynx no lesions Neck: no nodes, no JVD, supple, full ROM Respiratory: no wheezing, no rales, no rhonchi, clear to auscultation bilateral S1, S2 Cardiovascular: RRR, no significant murmur, no rub, gallop Gastrointestinal: soft, non-tender, no distention, positive bowel sounds Musculoskeletal: no edema, pulses present Neurological: normal sensation, moves all 4 limbs Psychiatric: A&O x 3 Skin: normal turgor, cap refill <2 seconds Dx/Plan (1) Erosive esophagitis Code(s): K22.10 - ULCER OF ESOPHAGUS WITHOUT BLEEDING Status: Acute Comment : Extensive esophagitis and gastritis noted on EGD, continue Protonix 40mg IV BID, continue Carafate, soft diet (2) Odynophagia Code(s): R13.10 - DYSPHAGIA, UNSPECIFIED Status: Acute Comment: Secondary to #1, see above for mgmt (3) Hypokalemia Code(s): E87.6 - HYPOKALEMIA Status: Acute Comment: KCL 40meq BID, repeat K + level in am (4) Hyponatremia Code(s): E87.1 - HYPO-OSMOLALITY AND HYPONATREMIA Status: Acute Comment: Improving, continue to encourage increased po intake (5) Febrile Code(s): R50.9 - FEVER, UNSPECIFIED Status: Acute Comment: Likely due to extensive esophagitis, await bx results - Plan out of bed/ambulate, DVT proph w/SCDs Stable currently -: Continue low-volume IVF's -: KCL 40meq BID -: Continue Protonix 40mg IV BID -: Continue Carafate * AM lab: CMP, CBC, CPK, HIV
[2018-09-11] MEDS ORDERED: Potassium Chloride 20 MEQ TAB PO SCH (11:45)
[2018-09-11] MEDS: NS 0.9% w/ 20 MEQ KCL 1,000 ML IV SCH ×2 (11:59→20:23)
--- NOTE | 2018-09-11 13:28 | PRG ---
DATE OF SERVICE: 09/11/2018 SUBJECTIVE: Ms. Hawley says she feels about the same. She continues to have odynophagia, sore throat when trying to swallow anything. She is able to tolerate liquids and soft food, but it just hurts. She did spike a low-grade fever last night. No abdominal pain, nausea, or vomiting. No more diarrhea. OBJECTIVE: VITAL SIGNS: T-max was 101.6 overnight, currently 100.3, pulse 78, blood pressure 100/73, 97% oxygen saturation on room air. GENERAL: No acute distress. HEART: Regular rate and rhythm. LUNGS: Clear to auscultation bilaterally. ABDOMEN: Soft, nontender to palpation. EXTREMITIES: No peripheral edema. LABORATORY STUDIES: CK is 1566. No CBC from today. Pathology on esophageal and gastric biopsies is still pending. ASSESSMENT AND PLAN: 1. Severe esophagitis, likely reflux related, biopsies pending. 2. Gastritis, biopsies pending. 3. Fever of unknown origin. 4. Odynophagia, secondary to severe esophagitis. I advised the patient that it is going to take at least several days for the esophageal lining to heal up and for the odynophagia to improve, but I do expect slow improvement from this point forward. Need to continue the PPI twice daily as well as the Carafate. I am going to go ahead and add viscous lidocaine swish and swallow every 4 hours as needed. She can advance her diet as tolerated. Workup for fevers per Primary Service. Please call anytime with questions or concerns. Job ID: [id number]
[2018-09-11] MEDS: Potassium Chloride 20 MEQ TAB PO SCH (18:00)
[2018-09-12] MEDS: Morphine 2 MG/ML SYRINGE SLOW IVP PRN ×5 (01:41→19:28)
[2018-09-12] MEDS: Acetaminophen 325 MG TAB PO PRN ×2 (04:15→12:19)
[2018-09-12 06:42] LABS: ALT (SGPT) 66 U/L (8-55); AST (SGOT) 43 U/L (5-34); Albumin 3.2 g/dL (3.5-5.0); Alkaline Phosphatase 49 U/L (40-150); Anion Gap 15 mmol/L (10-20); BUN (Urea Nitrogen) 5 mg/dL (9.8-20.1); Bilirubin, Total 0.3 mg/dL (0.2-1.2); Calc. Creatinine Clearance 135 mL/min (70-130); Calcium 7.9 mg/dL (7.8-10.44); Carbon Dioxide 21 mmol/L (22-29); Chloride 103 mmol/L (98-107); Estimated GFR-MDRD 89; Globulin 1.8 g/dL (2.4-3.5); Glucose 110 mg/dL (70-105); Potassium 3.3 mmol/L (3.5-5.1); Sodium 136 mmol/L (136-145)
[2018-09-12 07:22] LABS: Hemoglobin 11.2 g/dL (12.0-16.0); Mean Corpuscular HGB CONC 35.1 g/dL (32.0-36.0); Mean Corpuscular Hemoglobin 38.4 pg (27.0-31.0); Mean Platelet Volume 6.9 fL (7.4-10.4); Platelet Count 258 thou/uL (130-400); Red Blood Cell (RBC) Count 2.91 mill/uL (4.20-5.40); White Blood Cell (WBC) Count 4.8 thou/uL (4.8-10.8)
--- NOTE | 2018-09-12 08:30 | PRG ---
DATE OF SERVICE: 09/12/2018 SUBJECTIVE: Mrs. Hawley continues to have odynophagia, but is tolerating her diet. No nausea, vomiting, or diarrhea. Really, no abdominal pain. She has still been spiking fevers. Temperature got up to 101.7 last night. She has no other localizing symptoms that she can tell me. OBJECTIVE: VITAL SIGNS: T-max was 102.6 last night, currently 100.0; pulse 94; blood pressure 131/83; 97% oxygen saturation on room air. GENERAL: No acute distress. HEART: Regular rate and rhythm. LUNGS: Clear to auscultation bilaterally. ABDOMEN: Bowel sounds present. Soft, nontender to palpation. EXTREMITIES: No peripheral edema. LABORATORY STUDIES: WBC 4.8, hemoglobin 11.2, platelets 258, MCV 110. Sodium 136, potassium 3.3, BUN 5, creatinine 0.69, glucose 110, total bilirubin 0.3, alkaline phosphatase 49, AST 43, ALT 66, creatine kinase 1566, albumin 3.2. Viral hepatitis serologies are all negative. Tox screen all negative. Urine culture from admission negative. ASSESSMENT AND PLAN: 1. Severe erosive esophagitis. Biopsies are still pending. This is likely related to severe reflux and persistent vomiting over the past couple of weeks. 2. Vomiting, improved. 3. Gastritis, biopsies pending. 4. Odynophagia secondary to severe esophagitis. Continue with twice daily PPI as well as Carafate 3 times daily. I encouraged the patient to ask for the viscous lidocaine up to every 4 hours as needed. Diet can be as tolerated. 5. Fever of unknown origin. This has been going on over the past couple of days. No clear source that I can see. I do not think it would be related to her esophagitis. 6. GI will sign off at this time. Please call back anytime with questions or concerns. I will plan to see the patient back in clinic in the next 3 to 4 weeks. Job ID: [id number]
[2018-09-12] MEDS: Potassium Chloride 20 MEQ TAB PO SCH ×2 (08:39→17:03)
[2018-09-12] MEDS: Aspirin 81 mg Enteric Coated Tablet PO SCH (08:39)
[2018-09-12] MEDS: Atenolol 50 MG TAB PO SCH ×2 (08:40→20:26)
[2018-09-12] MEDS: Enoxaparin Sodium 30 MG/0.3 ML SYRINGE SC SCH (08:41)
[2018-09-12] MEDS: Sucralfate 1 GM/10 ML UDCUP PO SCH ×3 (08:41→20:30)
[2018-09-12] MEDS: Ketorolac Tromethamine 30 MG/ML VIAL IVP PRN ×2 (08:42→17:03)
[2018-09-12] MEDS: Pantoprazole 40 MG VIAL IVP SCH ×2 (08:42→20:27)
[2018-09-12] MEDS: NS 0.9% w/ 20 MEQ KCL 1,000 ML IV SCH ×3 (09:36→21:45)
[2018-09-12 09:44] LABS: Band 17 % (5-11); Eosinophils 6 % (0-10); Lymphocytes 27 % (21-51); MDiff Complete? YES; Macrocytosis SLIGHT = 6-15 cells (100X) (0-5/hpf); Monocytes 13 % (0-10); Myelocyte 1 % (0-0); Neutrophil 34 % (42-75); Polychromasia SLIGHT = 2-3 cells (100X) (0-2/hpf); Reactive Lymphocytes 2 % (0-10); Toxic Granulation SLIGHT
[2018-09-12] MEDS: ALPRAZolam 0.25 MG TAB PO PRN ×2 (12:19→21:43)
[2018-09-12] MEDS: Lidocaine Viscous Sol 2% 15 ml UD Cup SSW PRN ×3 (12:19→21:39)
[2018-09-12] MEDS ORDERED: ISOVUE-370 76%-LOCM 1 ML ONE (12:49)
--- NOTE | 2018-09-12 15:14 | PDOC.PN ---
- Subjective Encounter Start Date: 09/12/18 Encounter Start Time: 14:45 Subjective: f/u for erosive esophagitis on Carafate, Protonix with indolent fevers. No -: diarrhea or emesis and tolerating po intake. c/o pain in axillary and groin -: region. No dysuria and voiding regularly. - Objective Resuscitation Status - Order Detail: 09/08/18 18:43 Resuscitation Status Routine Resuscitation Status: FULL: Full Resuscitation Discussed with: Patient MAR Reviewed: Yes Vital Signs & Weight: Vital Signs (12 hours) Temp Pulse Resp BP BP Pulse Ox 09/12/18 12:00 100.6 F H 74 14 110/74 98 09/12/18 08:40 74 148/89 H 09/12/18 08:00 97 09/12/18 07:56 99.8 F H 74 14 143/89 H 97 09/12/18 05:55 100.0 F H 09/12/18 04:00 101.7 F H 94 16 131/83 97 Weight Admit Weight 192 lb 11.2 oz Weight 202 lb 11.2 oz I&O: 09/11/18 09/12/18 09/13/18 06:59 06:59 06:59 Intake Total 3015 900 Balance 3015 900 Result Diagrams: 09/12/18 07:12 09/12/18 04:54 Additional Labs: Laboratory Tests 09/08/18 09/08/18 09/08/18 15:53 19:33 19:33 Sodium 121 L 124 L Potassium 2.0 L* 2.5 L* Creatine Kinase Hepatitis A IgM Ab Non-Reactive Hep Bs Antigen Non-Reactive Hep B Core IgM Ab Non-Reactive Hepatitis C Antibody Non-Reactive 09/09/18 09/10/18 09/10/18 04:19 04:22 15:34 Sodium 128 L 131 L Potassium 2.8 L* 2.8 L* Creatine Kinase 2768 H Hepatitis A IgM Ab Hep Bs Antigen Hep B Core IgM Ab Hepatitis C Antibody Radiology Reviewed by me: Yes (ABD sono - neg GB findings, + hepatomegaly) Phys Exam - Physical Examination alert, responsive, anxious appearing L TM clear, non-visualized R TM, OP clear, multiple areas dental caries HEENT: PERRLA, sclera anicteric, oral pharynx no lesions Neck: no nodes, no JVD, supple, full ROM Respiratory: no wheezing, no rales, no rhonchi, clear to auscultation bilateral S1, S2 Cardiovascular: RRR, no significant murmur, no rub, gallop Gastrointestinal: soft, non-tender, no distention, positive bowel sounds Musculoskeletal: no edema, pulses present Neurological: normal sensation, moves all 4 limbs Psychiatric: A&O x 3 Deviation from normal: multiple areas of bruising on abd Skin: normal turgor, cap refill <2 seconds Dx/Plan (1) Febrile Code(s): R50.9 - FEVER, UNSPECIFIED Status: Acute Comment: Likely due to extensive esophagitis, await bx results, etiology unclear, check Influenza swab , HIV pending, consult ID service (2) Erosive esophagitis Code(s): K22.10 - ULCER OF ESOPHAGUS WITHOUT BLEEDING Status: Acute Comment : Extensive esophagitis and gastritis noted on EGD, continue Protonix 40mg IV BID, continue Carafate, soft diet (3) Odynophagia Code(s): R13.10 - DYSPHAGIA, UNSPECIFIED Status: Acute Comment: Secondary to #1, see above for mgmt (4) Hypokalemia Code(s): E87.6 - HYPOKALEMIA Status: Acute Comment: KCL 40meq BID, repeat K + level in am (5) Hyponatremia Code(s): E87.1 - HYPO-OSMOLALITY AND HYPONATREMIA Status: Acute Comment: Improving, continue to encourage increased po intake - Plan out of bed/ambulate, DVT proph w/SCDs Stable overall -: Continue Protonix and Carafate -: D/C Lovenox -: Continue KCL replacement -: Consult ID service regarding indolent fever * CT neck/mandible/maxilla r/o dental abscess * Lab: HIV, Blood cx, Influenza panel
--- NOTE | 2018-09-12 17:56 | CT ---
CT NECK WITH CONTRAST: 09/12/2018 HISTORY: A 53-year-old female with fever of unknown origin and poor dentition; rule out dental abscess. FINDINGS: There is total opacification of the bilateral middle ear cavities, the mastoid antra, and the few exi sting bilateral mastoid air cells. There are very few mastoid air cells. Streak artifact from dental work obscures portions of the oral cavity, buccal space, and the masticat or space. There is poor dentition with multiple defects/lucencies at the crowns of many upper and lo wer teeth. No periapical cyst is identified. No obvious breech of the osseous cortex of the mandibl e or maxilla at the alveolar ridges. No definite focal enhancing fluid collection identified in the buccal space, sublingual space, or submandibular space. There is no discrete abscess in the retropha ryngeal or prevertebral space. There is a thin rim of moderately low attenuation, broadly abutting the posterior aspect of the phary ngeal constrictor muscles cricopharyngeus muscle, that questionable represents an edematous layer of muscle, anterior to the adjacent retropharyngeal space and carotid space. There is a small pocket of gas located slightly inferior to the left cricoid cartilage and cricophary ngeus, that probably represents a small Cumming-Janteh diverticulum, measuring approximately 1 cm, with air-fluid level (coronal image 61 of 123, series 300 and axial image 61 of 104, series 2). The thyroid gland is small. The trachea is patent and clear. There is effacement of the bilateral p iriform sinuses. There is thickening with soft tissue edema involving the true and false focal cords and the bilateral aryepiglottic folds, with infiltration of the bilateral paraglottic fat. The epig lottis is mildly thickened and edematous. No destructive osseous lesion involving the cervical spine . There is ankylosis of the C6 and C7 vertebral bodies and ankylosis of the bilateral facet joints a t that level. This appears to be developmental/anomalous rather than post surgical. Otherwise, no m ajor pathology identified involving the carotid, parotid, submandibular, sublingual, parapharyngeal, posterior cervical, or pocket assembler spaces. There are scattered shotty cervical lymph nodes. No signi ficantly enlarged cervical lymph nodes. The maxillary sinuses are grossly clear. IMPRESSION: 1. Severe, total opacification of the bilateral tympanomastoid cavities, which could represent otoma stoiditis. Recommend clinical correlation. 2. No evidence of a dental abscess, any other abscess, or Shane's angina. 3. Laryngeal and hypopharyngeal diffuse mucosal edema, suggestive of laryngitis. 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 POS: [facility]
[2018-09-12] MEDS ORDERED: Cosyntropin 250 MCG VIAL SLOW IVP SCH (18:00)
[2018-09-12] MEDS: Cefepime 2 GM in Sodium Chloride 0.9% 100 ML IVPB SCH (20:27)
[2018-09-13] MEDS: Morphine 2 MG/ML SYRINGE SLOW IVP PRN ×4 (00:09→13:39)
--- NOTE | 2018-09-13 00:10 | CON ---
DATE OF CONSULTATION: 09/12/2018 REASON FOR CONSULTATION: Fever. HISTORY OF PRESENT ILLNESS: A 53-year-old patient, who has a history of SVT; nephrolithiasis, which required kidney stents at [facility]; and a 10-day history of vomiting with watery diarrhea. The patient decided to manage the problem in the home and became volume depleted, developed dizziness, some change in mental status. She then developed severe swallowing pain with inability to keep her fluid intake, because of that became hypotensive, and finally, brought herself in a cab to the emergency room and was admitted. Initial pulse 87, respirations 26, BP 117/73, temperature 98.7 on arrival, O2 sat 98%, T-max was 99.2 in the emergency room. Initial findings included normal lungs and heart exam. Abdomen was soft without tenderness. LABORATORY DATA: The initial lab data with a sodium of 121, potassium 2.0, creatinine 1.2, BUN 32. Bilirubin 0.7, AST 219, ALT 188 with alkaline phosphatase 78. TSH was 7.23. Albumin was 3.3. CK was done on September 10 for the first time and was 2700. White cell count was 12.5 on arrival and now is down to 4.8, hemoglobin 11, platelets 258. She had 65% neutrophils and now she has 34% neutrophils, 17% bands, monocytes 13, and myelocytes 1%. Urinalysis was fairly unremarkable. Hepatitis serology was negative. Influenza test was negative. Blood culture are pending at this time. There was a soft tissue neck CT. The brain MRI showed an empty sella syndrome and partial opacification of mastoid air cells. She had a temp of 100.8 on arrival, and few days later, it went up to 102.6. Imaging studies; otherwise, she had a chest x-ray on , which was essentially normal. There is a CT of [place], which was essentially normal. Brain CT with no acute intracranial abnormalities. Currently, Ms. Hawley is sitting in bed. She does not appear in distress, she is oriented. Denies any headaches. No visual symptoms, sore throat, odynophagia, dysphagia. No toothache. No back pain. No cough. No dyspnea. No abdominal pain. Diarrhea has ceased, and she is voiding without difficulty. No joint symptoms. No skin disorder. PAST MEDICAL HISTORY: Prior episode of nephrolithiasis, which required stent placement by Dr. Caceres many years ago. She has a history of delusional paranoid ideation in 2013 when she went into a grocery store with an axe and was brought to emergency room for evaluation by police, it does not seem to have recurred. History of hypertension and SVT, on atenolol. PAST SURGICAL HISTORY: Includes cholecystectomy, hysterectomy, appendectomy, and stents noted above. SOCIAL HISTORY: Former smoker, but quit many years ago. . Lives in the area. FAMILY HISTORY: Diabetes and hypertension. ALLERGIES: PENICILLIN WITH WHEEZING AND CHEST TIGHTNESS. CURRENT HOSPITAL MEDICATIONS: Include: 1. Xanax. 2. Ecotrin. Tenormin. 1. Toradol. 2. Imodium. 3. Morphine. 4. Zofran. 5. Phenergan. 6. Promethazine. 7. Sucralfate. STUDIES: The pathology from the endoscopy is still pending. Endoscopy results shows severe esophagitis and gastritis. ASSESSMENT: 1. Hypertension. 2. A 10-day history of unremitting nausea, vomiting with diarrhea and change in mental status. 3. Fever, which appears to have been in place on admission. 4. Bandemia, which developed after admission. 5. Hyponatremia and hypokalemia associated with vomiting. 6. Rhabdomyolysis, which was probably present on admission. DISCUSSION: Differential diagnosis includes acute viral infection, for example, norovirus infection versus respiratory virus infection versus bacteremia, which was not yet documented. Other autoimmune syndrome is also possible, although the muscle enzyme elevation is more likely due to rhabdomyolysis associated with the acute illness. Noninfectious and noninflammatory causes of hyponatremia and fever including Tadeo's disease need to be considered as well as in view of her empty sella. At this point, we will start broad-spectrum coverage in view of the bandemia. Monitor blood cultures. Check respiratory virus PCR and check cortisol with Cortrosyn test. Consider further evaluation according to the results of the above including the blood cultures. Job ID: [id number]
[2018-09-13] MEDS: Ketorolac Tromethamine 30 MG/ML VIAL IVP PRN ×2 (01:55→11:04)
[2018-09-13] MEDS: Lidocaine Viscous Sol 2% 15 ml UD Cup SSW PRN ×4 (05:56→22:25)
[2018-09-13] MEDS: Atenolol 50 MG TAB PO SCH ×2 (09:11→20:34)
[2018-09-13] MEDS: Aspirin 81 mg Enteric Coated Tablet PO SCH (09:12)
[2018-09-13] MEDS: Sucralfate 1 GM/10 ML UDCUP PO SCH ×3 (09:13→20:36)
[2018-09-13] MEDS: Pantoprazole 40 MG VIAL IVP SCH ×2 (09:13→20:35)
[2018-09-13] MEDS: Cefepime 2 GM in Sodium Chloride 0.9% 100 ML IVPB SCH ×2 (09:13→20:33)
[2018-09-13] MEDS: NS 0.9% w/ 20 MEQ KCL 1,000 ML IV SCH ×2 (11:00→21:31)
[2018-09-13] MEDS: Potassium Chloride 20 MEQ TAB PO SCH (11:10)
[2018-09-13 15:18] LABS: HIV (1/2) Antibody/Antigen Non-Reactive (NonReactive); HIV 1/2 INDEX 0.11 S/CO (<1.00)
--- NOTE | 2018-09-13 16:12 | PDOC.PN ---
- Subjective Encounter Start Date: 09/13/18 Encounter Start Time: 16:00 Subjective: f/u for erosive esophagitis, dysphagia on Protonix. Also with indolent -: fever of unclear etiology on empiric Cefepime. c/o persistent dysphagia, -: feels anxious and in pain. - Objective Resuscitation Status - Order Detail: 09/08/18 18:43 Resuscitation Status Routine Resuscitation Status: FULL: Full Resuscitation Discussed with: Patient MAR Reviewed: Yes Vital Signs & Weight: Vital Signs (12 hours) Temp Pulse Resp BP Pulse Ox 09/13/18 12:00 99.5 F 69 14 136/88 96 09/13/18 09:11 83 09/13/18 08:25 97 09/13/18 08:00 99.6 F 95 16 140/86 97 Weight Admit Weight 192 lb 11.2 oz Weight 205 lb I&O: 09/12/18 09/13/18 09/14/18 06:59 06:59 06:59 Intake Total 900 4800 960 Balance 900 4800 960 Result Diagrams: 09/12/18 07:12 09/12/18 04:54 Additional Labs: Microbiology 09/12/18 19:20 Nasopharyngeal swab Respiratory Virus Panel (PCR) - Final 09/12/18 15:32 Nasal swab Influenza Types A,B Direct EIA - Final 09/12/18 16:26 Venous blood - Right Arm Blood Culture - Preliminary Specimen has been received and culture in progress. No Growth to date. 09/12/18 16:26 Venous blood - Left Arm Blood Culture - Preliminary Specimen has been received and culture in progress. No Growth to date. Laboratory Tests 09/08/18 09/08/18 09/08/18 15:53 19:33 19:33 Sodium 121 L 124 L Potassium 2.0 L* 2.5 L* Creatine Kinase Hepatitis A IgM Ab Non-Reactive Hep Bs Antigen Non-Reactive Hep B Core IgM Ab Non-Reactive Hepatitis C Antibody Non-Reactive 09/09/18 09/10/18 09/10/18 04:19 04:22 15:34 Sodium 128 L 131 L Potassium 2.8 L* 2.8 L* Creatine Kinase 2768 H Hepatitis A IgM Ab Hep Bs Antigen Hep B Core IgM Ab Hepatitis C Antibody Radiology Reviewed by me: Yes (CT neck - diffuse esophageal/laryngeal edema, + diverticulum) Phys Exam - Physical Examination tearful, alert HEENT: PERRLA, sclera anicteric, oral pharynx no lesions Neck: no nodes, no JVD, supple, full ROM Respiratory: no wheezing, no rales, no rhonchi, clear to auscultation bilateral S1, S2 Cardiovascular: RRR, no significant murmur, no rub, gallop Gastrointestinal: soft, non-tender, no distention, positive bowel sounds Musculoskeletal: no edema, pulses present Neurological: normal sensation, moves all 4 limbs Psychiatric: A&O x 3 Skin: normal turgor, cap refill <2 seconds Dx/Plan (1) Febrile Code(s): R50.9 - FEVER, UNSPECIFIED Status: Acute Comment: Likely due to extensive esophagitis, await bx results, etiology unclear, check Influenza swab , HIV pending, consult ID service, Cefepime initiated empirically (2) Erosive esophagitis Code(s): K22.10 - ULCER OF ESOPHAGUS WITHOUT BLEEDING Status: Acute Comment : Extensive esophagitis and gastritis noted on EGD, continue Protonix 40mg IV BID, continue Carafate, soft diet (3) Odynophagia Code(s): R13.10 - DYSPHAGIA, UNSPECIFIED Status: Acute Comment: Secondary to #1, see above for mgmt, Viscous Lidocaine, soft diet (4) Hypokalemia Code(s): E87.6 - HYPOKALEMIA Status: Acute Comment: KCL 40meq BID, repeat K + level in am (5) Hyponatremia Code(s): E87.1 - HYPO-OSMOLALITY AND HYPONATREMIA Status: Acute Comment: Improving, continue to encourage increased po intake - Plan continue antibiotics, out of bed/ambulate, DVT proph w/SCDs Stable currently -: Continue Cefepime pending final cx results -: HIV negative -: Continue Carafate, Protonix IV -: Pain control with Morphine sulfate/Toradol * .
[2018-09-13] MEDS ORDERED: Ketorolac Tromethamine 30 MG/ML VIAL IVP PRN (16:18)
[2018-09-13] MEDS: Morphine 4 MG/ML VIAL SLOW IVP PRN ×2 (17:46→22:19)
[2018-09-13] MEDS: ALPRAZolam 0.5 MG TAB PO PRN (20:36)
[2018-09-13] MEDS: Ketorolac Tromethamine 30 MG/ML VIAL IVP SCH (20:48)
[2018-09-14] MEDS: Promethazine HCl 25 MG SUPP PR PRN ×2 (01:25→15:51)
[2018-09-14] MEDS: Morphine 4 MG/ML VIAL SLOW IVP PRN ×4 (03:05→21:37)
[2018-09-14] MEDS: Lidocaine Viscous Sol 2% 15 ml UD Cup SSW PRN ×4 (03:06→21:38)
[2018-09-14] MEDS: Ketorolac Tromethamine 30 MG/ML VIAL IVP SCH ×4 (04:10→21:35)
[2018-09-14] MEDS: Atenolol 50 MG TAB PO SCH ×2 (08:29→21:30)
[2018-09-14] MEDS: Pantoprazole 40 MG VIAL IVP SCH ×2 (08:30→21:36)
[2018-09-14] MEDS: Sucralfate 1 GM/10 ML UDCUP PO SCH ×3 (08:34→21:37)
[2018-09-14] MEDS: Cefepime 2 GM in Sodium Chloride 0.9% 100 ML IVPB SCH ×2 (09:22→21:30)
[2018-09-14] MEDS: NS 0.9% w/ 20 MEQ KCL 1,000 ML IV SCH ×2 (09:23→21:30)
--- NOTE | 2018-09-14 10:14 | PQF ---
DATE: 09-14-18 ATTN: DR. RAMU FISHER Please exercise your independent, professional judgment in responding to the clarification form. Clinical indicators are provided on the bottom of this form for your review Please check appropriate box(es): [ ] Sepsis [ ] SIRS due to non-infectious process (please specify etiology) [ x ] Other diagnosis _esophagitis/laryngitis [ ] Unable to determine In addition, please specify: Present on Admission (POA): [ ] Yes [ x ] No [ ] Unable to determine For continuity of documentation, please document condition throughout progress notes and discharge summary. Thank You. CLINICAL INDICATORS - SIGNS / SYMPTOMS / LABS WBC: 09-08-18: 12.5 BANDS: 09-08-18: 8, 09-09-18: 1, 09-12-18: [address] CHERRY 09-12-18: SHE DEVELOPED SEVERE SWALLOWING PAIN WITH INABILITY TO KEEP HER FLUID INTAKE, BECAME HYPOTENSIVE, T MAX 99.2, SHE HAD TEMP 100.8 ON ARRIVAL AND FEW DAYS LATER WENT UP TO 102.6, FEVER WHICH APPEARS TO HAVE BEEN IN PLACE ON ADMISSION, BANDEMIA WHICH DEVELOPED AFTER ADMISSION, CHANGE IN MENTAL STATUS RISK FACTORS: ER: DISORIENTATION SINCE 08-27-18, PROJECTILE VOMITING, DIARRHEA, CONFUSION, WEAK TREATMENTS: MAR: 09-12-18: CEFEPIME IV, IVF (This form is maintained as a part of the permanent medical record) 2014 [employer]. All Rights Reserved [email or web address] Office: [phone] [facility]ITAL[facility]
--- NOTE | 2018-09-14 10:35 | PQF ---
DATE: 09-14-18 ATTN: DR. RAMU FISHER Please exercise your independent, professional judgment in responding to the clarification form. Clinical indicators are provided on the bottom of this form for your review Please check appropriate box(s): [ ] Acute Renal Failure (ARF) / Acute Kidney Injury (INDY) [ ] Insignificant Lab Values [ ] Other diagnosis [ x ] Unable to determine In addition, please specify: Present on Admission (POA): [ ] Yes [ ] No [ x ] Unable to determine National Kidney Foundation Guidelines for CKD Staging Stage I Kidney damage with normal or increased GFR GFR > 90 Stage II Kidney damage with mildly decreased GFR GFR 60-89 Stage III Kidney damage with moderately decreased GFR GFR 30-59 Stage IV Kidney damage with severely decreased GFR GFR 16-29 Stage V Kidney failure GFR<15 ESRD End Stage Renal Disease On dialysis Acute Renal Failure/Acute Kidney Failure defined as: Increases in SCr by (>) 0.3 mg/dl within 48 hours OR- Increases in SCr by (>) 1.5 times baseline, known or presumed to have occurred within the prior 7 days OR- Urine volume < 0.5 ml/kg/hour for 6 hours (KDIGO supplement 2012 for RIFLE/GRISELDA criteria) For continuity of documentation, please document condition throughout progress notes and discharge summary. Thank You. CLINICAL INDICATORS - SIGNS / SYMPTOMS / LABS GFR: 09-08-18: 47, 51 09-09-18: 62 09-10-18: 80 09-12-18: 89 CREATININE: 09-08-18: 1.21 1.12 BUN: 09-08-18: 32 26 09-09-18: 24 09-10-18: 8 09-12-18: 5 ER: WEAKNESS, PROJECTILE VOMITING, DIARRHEA, CONFUSION RISK FACTORS: ER: WEAKNESS, PROJECTILE VOMITING, DIARRHEA, CONFUSION TREATMENTS: ER: IVF (This form is maintained as a part of the permanent medical record) 2014 [employer]. All Rights Reserved [email or web address] Office: [phone] [facility]PITALJaylan
[2018-09-14] MEDS: Ondansetron ODT 4 MG TAB PO PRN (14:41)
--- NOTE | 2018-09-14 15:36 | PDOC.PN ---
- Subjective Encounter Start Date: 09/14/18 Encounter Start Time: 15:30 Subjective: f/u for indolent fever of unclear source on empiric Cefepime. Low- grade -: temps noted. Pt still c/o throat irritation and dysphagia. - Objective Resuscitation Status - Order Detail: 09/08/18 18:43 Resuscitation Status Routine Resuscitation Status: FULL: Full Resuscitation Discussed with: Patient KELIN Reviewed: Yes Vital Signs & Weight: Vital Signs (12 hours) Temp Pulse Resp BP Pulse Ox 09/14/18 11:56 99.4 F 89 18 113/77 98 09/14/18 08:29 89 09/14/18 07:58 99.7 F H 89 20 123/82 98 09/14/18 04:00 99.0 F 89 19 130/82 98 Weight Admit Weight 192 lb 11.2 oz Weight 205 lb I&O: 09/13/18 09/14/18 09/15/18 06:59 06:59 06:59 Intake Total 4800 1400 4548 Balance 4800 1400 4548 Result Diagrams: 09/12/18 07:12 09/12/18 04:54 Additional Labs: Microbiology 09/12/18 19:20 Nasopharyngeal swab Respiratory Virus Panel (PCR) - Final 09/12/18 15:32 Nasal swab Influenza Types A,B Direct EIA - Final 09/12/18 16:26 Venous blood - Right Arm Blood Culture - Preliminary Specimen has been received and culture in progress. No Growth to date. 09/12/18 16:26 Venous blood - Left Arm Blood Culture - Preliminary Specimen has been received and culture in progress. No Growth to date. Laboratory Tests 09/08/18 09/08/18 09/08/18 15:53 19:33 19:33 Sodium 121 L 124 L Potassium 2.0 L* 2.5 L* Creatine Kinase Hepatitis A IgM Ab Non-Reactive Hep Bs Antigen Non-Reactive Hep B Core IgM Ab Non-Reactive Hepatitis C Antibody Non-Reactive 09/09/18 09/10/18 09/10/18 04:19 04:22 15:34 Sodium 128 L 131 L Potassium 2.8 L* 2.8 L* Creatine Kinase 2768 H Hepatitis A IgM Ab Hep Bs Antigen Hep B Core IgM Ab Hepatitis C Antibody Phys Exam - Physical Examination HEENT: PERRLA, sclera anicteric, oral pharynx no lesions Neck: no nodes, no JVD, supple, full ROM Respiratory: no wheezing, no rales, no rhonchi, clear to auscultation bilateral S1, S2 Cardiovascular: RRR, no significant murmur, no rub, gallop Gastrointestinal: soft, non-tender, no distention, positive bowel sounds Musculoskeletal: no edema, pulses present Neurological: normal sensation, moves all 4 limbs Psychiatric: A&O x 3 Skin: normal turgor, cap refill <2 seconds Dx/Plan (1) Febrile Code(s): R50.9 - FEVER, UNSPECIFIED Status: Acute Comment: Likely due to extensive esophagitis, await bx results, etiology unclear, check Influenza swab , HIV negative, Cefepime initiated empirically, add Vancomycin and monitor temp trend (2) Erosive esophagitis Code(s): K22.10 - ULCER OF ESOPHAGUS WITHOUT BLEEDING Status: Acute Comment : Extensive esophagitis and gastritis noted on EGD, continue Protonix 40mg IV BID, continue Carafate, soft diet (3) Odynophagia Code(s): R13.10 - DYSPHAGIA, UNSPECIFIED Status: Acute Comment: Secondary to #1, see above for mgmt, Viscous Lidocaine, soft diet (4) Hypokalemia Code(s): E87.6 - HYPOKALEMIA Status: Acute Comment: KCL 40meq BID, repeat K + level in am (5) Hyponatremia Code(s): E87.1 - HYPO-OSMOLALITY AND HYPONATREMIA Status: Acute Comment: Improving, continue to encourage increased po intake - 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
[2018-09-14] MEDS: Vancomycin HCl 1 GM in Premix Bag 1 BAG IVPB SCH (16:28)
[2018-09-14] MEDS: Acetaminophen 325 MG TAB PO PRN (16:28)
[2018-09-14] MEDS: ALPRAZolam 0.5 MG TAB PO PRN (18:41)
[2018-09-15] MEDS: Vancomycin HCl 1 GM in Premix Bag 1 BAG IVPB SCH ×2 (03:20→16:50)
[2018-09-15] MEDS: Ketorolac Tromethamine 30 MG/ML VIAL IVP SCH ×4 (03:20→20:59)
[2018-09-15] MEDS: Morphine 4 MG/ML VIAL SLOW IVP PRN ×5 (03:21→21:16)
[2018-09-15] MEDS: Lidocaine Viscous Sol 2% 15 ml UD Cup SSW PRN ×3 (03:21→17:45)
[2018-09-15] MEDS: Promethazine HCl 25 MG SUPP PR PRN ×2 (03:22→17:21)
[2018-09-15 05:12] LABS: Anion Gap 12 mmol/L (10-20); BUN (Urea Nitrogen) 8 mg/dL (9.8-20.1); Calc. Creatinine Clearance 150 mL/min (70-130); Calcium 8.1 mg/dL (7.8-10.44); Carbon Dioxide 23 mmol/L (22-29); Chloride 105 mmol/L (98-107); Estimated GFR-MDRD Greater than 90; Glucose 150 mg/dL (70-105); Potassium 3.8 mmol/L (3.5-5.1); Sodium 136 mmol/L (136-145)
[2018-09-15] MEDS: Sucralfate 1 GM/10 ML UDCUP PO SCH ×3 (09:09→22:18)
[2018-09-15] MEDS: Cefepime 2 GM in Sodium Chloride 0.9% 100 ML IVPB SCH ×2 (09:10→20:58)
[2018-09-15] MEDS: Atenolol 50 MG TAB PO SCH ×2 (09:11→20:58)
[2018-09-15] MEDS: Pantoprazole 40 MG VIAL IVP SCH ×2 (09:13→21:00)
[2018-09-15] MEDS: Acetaminophen 325 MG TAB PO PRN (10:20)
[2018-09-15] MEDS: NS 0.9% w/ 20 MEQ KCL 1,000 ML IV SCH ×2 (10:58→16:09)
[2018-09-15 11:22] VITALS: BMI 29.4
[2018-09-15] MEDS: ALPRAZolam 0.5 MG TAB PO PRN (15:00)
[2018-09-15] MEDS ORDERED: Fluconazole In NaCl,Iso-Osm 200 MG in Premix Bag 1 BAG IVPB SCH (17:00)
--- NOTE | 2018-09-15 17:09 | PDOC.PN ---
- Subjective Encounter Start Date: 09/15/18 Encounter Start Time: 17:00 Subjective: f/u for recurrent fevers, severe esophagitis on current Cefepime -: and Protonix. Still with dysphagia but tolerating liquids. No diarrhea -: cough or dysuria. - Objective Resuscitation Status - Order Detail: 09/08/18 18:43 Resuscitation Status Routine Resuscitation Status: FULL: Full Resuscitation Discussed with: Patient MAR Reviewed: Yes Vital Signs & Weight: Vital Signs (12 hours) Temp Pulse Resp BP BP Pulse Ox 09/15/18 15:41 99.5 F 74 16 151/87 H 100 09/15/18 11:32 100.1 F H 84 16 115/82 97 09/15/18 09:20 101.1 F H 76 20 156/91 H 97 09/15/18 09:11 76 156/91 H 09/15/18 08:00 97 Weight Admit Weight 192 lb 11.2 oz Weight 205 lb I&O: 09/14/18 09/15/18 09/16/18 06:59 06:59 06:59 Intake Total 1400 7748 260 Balance 1400 7748 260 Result Diagrams: 09/12/18 07:12 09/15/18 04:30 Additional Labs: Microbiology 09/12/18 19:20 Nasopharyngeal swab Respiratory Virus Panel (PCR) - Final 09/12/18 15:32 Nasal swab Influenza Types A,B Direct EIA - Final 09/12/18 16:26 Venous blood - Right Arm Blood Culture - Preliminary Specimen has been received and culture in progress. No Growth to date. 09/12/18 16:26 Venous blood - Left Arm Blood Culture - Preliminary Specimen has been received and culture in progress. No Growth to date. Laboratory Tests 09/08/18 09/08/18 09/08/18 15:53 19:33 19:33 Sodium 121 L 124 L Potassium 2.0 L* 2.5 L* Creatine Kinase Hepatitis A IgM Ab Non-Reactive Hep Bs Antigen Non-Reactive Hep B Core IgM Ab Non-Reactive Hepatitis C Antibody Non-Reactive 09/09/18 09/10/18 09/10/18 04:19 04:22 15:34 Sodium 128 L 131 L Potassium 2.8 L* 2.8 L* Creatine Kinase 2768 H Hepatitis A IgM Ab Hep Bs Antigen Hep B Core IgM Ab Hepatitis C Antibody Phys Exam - Physical Examination alert, responsive HEENT: PERRLA, sclera anicteric, oral pharynx no lesions Neck: no nodes, no JVD, supple, full ROM Respiratory: no wheezing, no rales, no rhonchi, clear to auscultation bilateral S1, S2 Cardiovascular: RRR, no significant murmur, no rub, gallop Gastrointestinal: soft, non-tender, no distention, positive bowel sounds Musculoskeletal: no edema, pulses present Neurological: normal sensation, moves all 4 limbs Psychiatric: A&O x 3 Skin: normal turgor, cap refill <2 seconds Dx/Plan (1) Febrile Code(s): R50.9 - FEVER, UNSPECIFIED Status: Acute Comment: Likely due to extensive esophagitis, await bx results, etiology unclear, Influenza neg, HIV negative, Cefepime initiated empirically, add Vancomycin and add Diflucan (2) Erosive esophagitis Code(s): K22.10 - ULCER OF ESOPHAGUS WITHOUT BLEEDING Status: Acute Comment : Extensive esophagitis and gastritis noted on EGD, continue Protonix 40mg IV BID, continue Carafate, soft diet (3) Odynophagia Code(s): R13.10 - DYSPHAGIA, UNSPECIFIED Status: Acute Comment: Secondary to #1, see above for mgmt, Viscous Lidocaine, soft diet (4) Hypokalemia Code(s): E87.6 - HYPOKALEMIA Status: Acute Comment: KCL 40meq BID, repeat K + level in am (5) Hyponatremia Code(s): E87.1 - HYPO-OSMOLALITY AND HYPONATREMIA Status: Acute Comment: Improving, continue to encourage increased po intake - Plan continue antibiotics, out of bed/ambulate, DVT proph w/SCDs Stable currently -: Continue Cefepime/Vancomycin -: Add Diflucan 200mg IV x 1 now then 100mg daily -: Continue Protonix/Carafate -: Continue pain control as clinically indicated * AM lab: CBC
[2018-09-16] MEDS: Acetaminophen 325 MG TAB PO PRN ×2 (01:21→20:08)
[2018-09-16] MEDS: Lidocaine Viscous Sol 2% 15 ml UD Cup SSW PRN ×4 (01:22→19:14)
[2018-09-16] MEDS: NS 0.9% w/ 20 MEQ KCL 1,000 ML IV SCH ×2 (01:23→12:35)
[2018-09-16] MEDS: Ketorolac Tromethamine 30 MG/ML VIAL IVP SCH ×4 (02:08→20:44)
[2018-09-16] MEDS: Vancomycin HCl 1 GM in Premix Bag 1 BAG IVPB SCH ×2 (04:26→16:40)
[2018-09-16] MEDS: Ondansetron ODT 4 MG TAB PO PRN ×2 (06:12→14:51)
[2018-09-16] MEDS: Morphine 4 MG/ML VIAL SLOW IVP PRN ×4 (06:13→20:44)
[2018-09-16 08:06] LABS: Hemoglobin 10.6 g/dL (12.0-16.0); Mean Corpuscular HGB CONC 32.6 g/dL (32.0-36.0); Mean Corpuscular Hemoglobin 36.8 pg (27.0-31.0); Mean Platelet Volume 7.5 fL (7.4-10.4); Platelet Count 394 thou/uL (130-400); RBC Distribution Width 14.3 % (11.5-14.5); Red Blood Cell (RBC) Count 2.88 mill/uL (4.20-5.40); White Blood Cell (WBC) Count 5.7 thou/uL (4.8-10.8)
[2018-09-16] MEDS: Cefepime 2 GM in Sodium Chloride 0.9% 100 ML IVPB SCH ×2 (08:51→20:03)
[2018-09-16] MEDS: Pantoprazole 40 MG VIAL IVP SCH ×2 (08:52→20:03)
[2018-09-16] MEDS: Sucralfate 1 GM/10 ML UDCUP PO SCH ×3 (08:55→20:03)
[2018-09-16 09:06] LABS: Band 4 % (5-11); Eosinophils 5 % (0-10); Lymphocytes 33 % (21-51); MDiff Complete? YES; Macrocytosis MODERATE=16-30 cells (100X) (0-5/hpf); Monocytes 14 % (0-10); Neutrophil 44 % (42-75); Platelet Morphology Comment Appears Adequate; Polychromasia SLIGHT = 2-3 cells (100X) (0-2/hpf)
[2018-09-16] MEDS: Atenolol 50 MG TAB PO SCH ×2 (10:29→20:04)
[2018-09-16] MEDS: ALPRAZolam 0.5 MG TAB PO PRN (12:33)
--- NOTE | 2018-09-16 15:56 | PDOC.PN ---
- Subjective Encounter Start Date: 09/16/18 Encounter Start Time: 13:20 Subjective: f/u for febrile illness, severe esophagitis on empiric Cefepime/Vanc -: and Diflucan. Feels about the same as last 24h. Tolerating soft diet. - Objective Resuscitation Status - Order Detail: 09/08/18 18:43 Resuscitation Status Routine Resuscitation Status: FULL: Full Resuscitation Discussed with: Patient MAR Reviewed: Yes Vital Signs & Weight: Vital Signs (12 hours) Temp Pulse Resp BP BP BP Pulse Ox 09/16/18 12:00 99.2 F 83 20 122/74 97 09/16/18 10:29 76 126/64 09/16/18 08:50 96 09/16/18 07:44 99.2 F 76 16 126/64 96 09/16/18 04:51 98.1 F 83 16 117/63 95 Weight Admit Weight 192 lb 11.2 oz Weight 205 lb I&O: 09/15/18 09/16/18 09/17/18 06:59 06:59 06:59 Intake Total 7748 480 Output Total 180 Balance 7748 300 Result Diagrams: 09/16/18 07:26 09/15/18 04:30 Additional Labs: Microbiology 09/12/18 19:20 Nasopharyngeal swab Respiratory Virus Panel (PCR) - Final 09/12/18 15:32 Nasal swab Influenza Types A,B Direct EIA - Final 09/12/18 16:26 Venous blood - Right Arm Blood Culture - Preliminary Specimen has been received and culture in progress. No Growth to date. 09/12/18 16:26 Venous blood - Left Arm Blood Culture - Preliminary Specimen has been received and culture in progress. No Growth to date. Laboratory Tests 09/08/18 09/08/18 09/08/18 15:53 19:33 19:33 Sodium 121 L 124 L Potassium 2.0 L* 2.5 L* Creatine Kinase Hepatitis A IgM Ab Non-Reactive Hep Bs Antigen Non-Reactive Hep B Core IgM Ab Non-Reactive Hepatitis C Antibody Non-Reactive 09/09/18 09/10/18 09/10/18 04:19 04:22 15:34 Sodium 128 L 131 L Potassium 2.8 L* 2.8 L* Creatine Kinase 2768 H Hepatitis A IgM Ab Hep Bs Antigen Hep B Core IgM Ab Hepatitis C Antibody Phys Exam - Physical Examination Constitutional: NAD alert, tearful HEENT: PERRLA, sclera anicteric, oral pharynx no lesions Neck: no nodes, no JVD, supple, full ROM Respiratory: no wheezing, no rales, no rhonchi, clear to auscultation bilateral S1, S2 Cardiovascular: RRR, no significant murmur, no rub, gallop Gastrointestinal: soft, non-tender, no distention, positive bowel sounds mild peripheral edema Musculoskeletal: pulses present, edema present Neurological: normal sensation, moves all 4 limbs Psychiatric: A&O x 3 Skin: normal turgor, cap refill <2 seconds Dx/Plan (1) Febrile Code(s): R50.9 - FEVER, UNSPECIFIED Status: Acute Comment: Likely due to extensive esophagitis, Influenza neg, HIV negative, Cefepime initiated empirically, add Vancomycin and add Diflucan (2) Erosive esophagitis Code(s): K22.10 - ULCER OF ESOPHAGUS WITHOUT BLEEDING Status: Acute Comment : Extensive esophagitis and gastritis noted on EGD, continue Protonix 40mg IV BID, continue Carafate, soft diet (3) Odynophagia Code(s): R13.10 - DYSPHAGIA, UNSPECIFIED Status: Acute Comment: Secondary to #1, see above for mgmt, Viscous Lidocaine, soft diet (4) Hypokalemia Code(s): E87.6 - HYPOKALEMIA Status: Acute Comment: KCL 40meq BID, repeat K + level in am (5) Hyponatremia Code(s): E87.1 - HYPO-OSMOLALITY AND HYPONATREMIA Status: Acute Comment: Improving, continue to encourage increased po intake - 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
[2018-09-16] MEDS: Promethazine HCl 25 MG SUPP PR PRN (17:27)
[2018-09-16] MEDS: Fluconazole In NaCl,Iso-Osm 100 MG in Premix Bag 1 BAG IVPB SCH (17:48)
[2018-09-17] MEDS: Morphine 4 MG/ML VIAL SLOW IVP PRN ×5 (02:02→20:49)
[2018-09-17] MEDS: Lidocaine Viscous Sol 2% 15 ml UD Cup SSW PRN ×4 (02:06→20:50)
[2018-09-17] MEDS: ALPRAZolam 0.5 MG TAB PO PRN ×2 (02:08→17:49)
[2018-09-17] MEDS: Vancomycin HCl 1 GM in Premix Bag 1 BAG IVPB SCH ×2 (03:12→17:49)
[2018-09-17] MEDS: Ketorolac Tromethamine 30 MG/ML VIAL IVP SCH ×4 (03:12→20:49)
[2018-09-17] MEDS: Acetaminophen 325 MG TAB PO PRN (06:45)
[2018-09-17] MEDS: Cefepime 2 GM in Sodium Chloride 0.9% 100 ML IVPB SCH ×2 (08:49→20:48)
[2018-09-17] MEDS: Atenolol 50 MG TAB PO SCH ×2 (08:49→20:48)
[2018-09-17] MEDS: Pantoprazole 40 MG VIAL IVP SCH ×2 (08:50→20:50)
[2018-09-17] MEDS: Sucralfate 1 GM/10 ML UDCUP PO SCH ×3 (08:51→20:50)
[2018-09-17] MEDS ORDERED: Hydrochlorothiazide 25 MG TAB PO SCH (13:15)
--- NOTE | 2018-09-17 15:18 | PDOC.PN ---
- Subjective Encounter Start Date: 09/17/18 Encounter Start Time: 14:05 Subjective: f/u for indolent fever and severe esophagitis. Still with dysphagia but -: some improvement. Intermittent fever spikes. Some swelling in LE's -: Ambulating in halls. - Objective Resuscitation Status - Order Detail: 09/08/18 18:43 Resuscitation Status Routine Resuscitation Status: FULL: Full Resuscitation Discussed with: Patient KELIN Reviewed: Yes Vital Signs & Weight: Vital Signs (12 hours) Temp Pulse Resp BP BP Pulse Ox 09/17/18 13:54 97.5 F L 133/83 09/17/18 11:23 98.7 F 64 18 109/74 96 09/17/18 08:50 97 09/17/18 08:49 77 141/68 H 09/17/18 07:44 99.7 F H 79 18 141/68 H 97 09/17/18 04:00 98.6 F Weight Admit Weight 192 lb 11.2 oz Weight 205 lb I&O: 09/16/18 09/17/18 09/18/18 06:59 06:59 06:59 Intake Total 480 3350 Output Total 180 Balance 300 3350 Result Diagrams: 09/16/18 07:26 09/15/18 04:30 Additional Labs: Microbiology 09/12/18 19:20 Nasopharyngeal swab Respiratory Virus Panel (PCR) - Final 09/12/18 15:32 Nasal swab Influenza Types A,B Direct EIA - Final 09/12/18 16:26 Venous blood - Right Arm Blood Culture - Preliminary Specimen has been received and culture in progress. No Growth to date. 09/12/18 16:26 Venous blood - Left Arm Blood Culture - Preliminary Specimen has been received and culture in progress. No Growth to date. Laboratory Tests 09/08/18 09/08/18 09/08/18 15:53 19:33 19:33 Sodium 121 L 124 L Potassium 2.0 L* 2.5 L* Creatine Kinase Hepatitis A IgM Ab Non-Reactive Hep Bs Antigen Non-Reactive Hep B Core IgM Ab Non-Reactive Hepatitis C Antibody Non-Reactive 09/09/18 09/10/18 09/10/18 04:19 04:22 15:34 Sodium 128 L 131 L Potassium 2.8 L* 2.8 L* Creatine Kinase 2768 H Hepatitis A IgM Ab Hep Bs Antigen Hep B Core IgM Ab Hepatitis C Antibody Phys Exam - Physical Examination Constitutional: NAD HEENT: PERRLA, sclera anicteric, oral pharynx no lesions Neck: no nodes, no JVD, supple, full ROM Respiratory: no wheezing, no rales, no rhonchi, clear to auscultation bilateral S1, S2 Cardiovascular: RRR, no significant murmur, no rub, gallop Gastrointestinal: soft, non-tender, no distention, positive bowel sounds non-pitting edema LE's Musculoskeletal: pulses present Neurological: normal sensation, moves all 4 limbs Psychiatric: A&O x 3 Skin: normal turgor, cap refill <2 seconds Dx/Plan (1) Febrile Code(s): R50.9 - FEVER, UNSPECIFIED Status: Acute Comment: Likely due to extensive esophagitis, Influenza neg, HIV negative, Cefepime initiated empirically, add Vancomycin and add Diflucan (2) Erosive esophagitis Code(s): K22.10 - ULCER OF ESOPHAGUS WITHOUT BLEEDING Status: Acute Comment : Extensive esophagitis and gastritis noted on EGD, continue Protonix 40mg IV BID, continue Carafate, soft diet (3) Odynophagia Code(s): R13.10 - DYSPHAGIA, UNSPECIFIED Status: Acute Comment: Secondary to #1, see above for mgmt, Viscous Lidocaine, soft diet (4) Hypokalemia Code(s): E87.6 - HYPOKALEMIA Status: Acute Comment: KCL 40meq daily, repeat K+ level in am (5) Hyponatremia Code(s): E87.1 - HYPO-OSMOLALITY AND HYPONATREMIA Status: Acute Comment: Improving, continue to encourage increased po intake - Plan 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
[2018-09-17] MEDS: Fluconazole In NaCl,Iso-Osm 100 MG in Premix Bag 1 BAG IVPB SCH (17:49)
[2018-09-18] MEDS: Promethazine HCl 25 MG SUPP PR PRN ×2 (01:26→19:39)
[2018-09-18] MEDS: Morphine 4 MG/ML VIAL SLOW IVP PRN ×5 (02:13→21:55)
[2018-09-18] MEDS: Lidocaine Viscous Sol 2% 15 ml UD Cup SSW PRN ×5 (02:13→21:54)
[2018-09-18] MEDS: Ketorolac Tromethamine 30 MG/ML VIAL IVP SCH ×4 (02:14→21:53)
[2018-09-18] MEDS: ALPRAZolam 0.5 MG TAB PO PRN ×2 (04:07→17:02)
[2018-09-18] MEDS: Vancomycin HCl 1 GM in Premix Bag 1 BAG IVPB SCH ×2 (04:07→15:46)
[2018-09-18] MEDS: Pantoprazole 40 MG VIAL IVP SCH ×2 (08:04→21:53)
[2018-09-18] MEDS: Atenolol 50 MG TAB PO SCH ×2 (08:04→20:52)
[2018-09-18] MEDS: Cefepime 2 GM in Sodium Chloride 0.9% 100 ML IVPB SCH ×2 (08:04→20:51)
[2018-09-18] MEDS: Hydrochlorothiazide 25 MG TAB PO SCH (08:05)
[2018-09-18] MEDS: Sucralfate 1 GM/10 ML UDCUP PO SCH ×3 (08:08→20:53)
--- NOTE | 2018-09-18 11:09 | PDOC.PN ---
- Subjective Encounter Start Date: 09/18/18 Encounter Start Time: 11:05 Subjective: f/u for recurrent low-grade fever suspected from severe esophagitis and slo -: to improve. Feels better overall with some dysphagia. Tolerating Lidocaine -: gel and soft diet. - Objective Resuscitation Status - Order Detail: 09/08/18 18:43 Resuscitation Status Routine Resuscitation Status: FULL: Full Resuscitation Discussed with: Patient MAR Reviewed: Yes Vital Signs & Weight: Vital Signs (12 hours) Temp Pulse Resp BP BP Pulse Ox 09/18/18 10:42 96 09/18/18 08:15 99.5 F 68 16 120/85 96 09/18/18 08:04 85 119/78 09/18/18 04:00 98.6 F 85 16 119/78 95 Weight Admit Weight 192 lb 11.2 oz Weight 205 lb I&O: 09/17/18 09/18/18 09/19/18 06:59 06:59 06:59 Intake Total 3350 2230 Balance 3350 2230 Result Diagrams: 09/16/18 07:26 09/15/18 04:30 Additional Labs: Microbiology 09/12/18 19:20 Nasopharyngeal swab Respiratory Virus Panel (PCR) - Final 09/12/18 15:32 Nasal swab Influenza Types A,B Direct EIA - Final 09/12/18 16:26 Venous blood - Right Arm Blood Culture - Preliminary Specimen has been received and culture in progress. No Growth to date. 09/12/18 16:26 Venous blood - Left Arm Blood Culture - Preliminary Specimen has been received and culture in progress. No Growth to date. Laboratory Tests 09/08/18 09/08/18 09/08/18 15:53 19:33 19:33 Sodium 121 L 124 L Potassium 2.0 L* 2.5 L* Creatine Kinase Hepatitis A IgM Ab Non-Reactive Hep Bs Antigen Non-Reactive Hep B Core IgM Ab Non-Reactive Hepatitis C Antibody Non-Reactive 09/09/18 09/10/18 09/10/18 04:19 04:22 15:34 Sodium 128 L 131 L Potassium 2.8 L* 2.8 L* Creatine Kinase 2768 H Hepatitis A IgM Ab Hep Bs Antigen Hep B Core IgM Ab Hepatitis C Antibody Phys Exam - Physical Examination Constitutional: NAD HEENT: PERRLA, sclera anicteric, oral pharynx no lesions Neck: no nodes, no JVD, supple, full ROM Respiratory: no wheezing, no rales, no rhonchi, clear to auscultation bilateral S1, S2 Cardiovascular: RRR, no significant murmur, no rub, gallop Gastrointestinal: soft, non-tender, no distention, positive bowel sounds mild LE edema Musculoskeletal: pulses present Neurological: normal sensation, moves all 4 limbs Psychiatric: A&O x 3 Skin: normal turgor, cap refill <2 seconds Dx/Plan (1) Febrile Code(s): R50.9 - FEVER, UNSPECIFIED Status: Acute Comment: Likely due to extensive esophagitis, Influenza neg, HIV negative, Cefepime initiated empirically, add Vancomycin and add Diflucan (2) Erosive esophagitis Code(s): K22.10 - ULCER OF ESOPHAGUS WITHOUT BLEEDING Status: Acute Comment : Extensive esophagitis and gastritis noted on EGD, continue Protonix 40mg IV BID, continue Carafate, soft diet (3) Odynophagia Code(s): R13.10 - DYSPHAGIA, UNSPECIFIED Status: Acute Comment: Secondary to #1, see above for mgmt, Viscous Lidocaine, soft diet (4) Hypokalemia Code(s): E87.6 - HYPOKALEMIA Status: Acute Comment: KCL 40meq daily, repeat K+ level in am (5) Hyponatremia Code(s): E87.1 - HYPO-OSMOLALITY AND HYPONATREMIA Status: Acute Comment: Improving, continue to encourage increased po intake - 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
[2018-09-18] MEDS: Fluconazole In NaCl,Iso-Osm 100 MG in Premix Bag 1 BAG IVPB SCH (18:42)
[2018-09-18] MEDS: Acetaminophen 325 MG TAB PO PRN (21:55)
[2018-09-19] MEDS: Lidocaine Viscous Sol 2% 15 ml UD Cup SSW PRN ×5 (03:11→21:44)
[2018-09-19] MEDS: Morphine 4 MG/ML VIAL SLOW IVP PRN ×3 (03:11→12:33)
[2018-09-19] MEDS: ALPRAZolam 0.5 MG TAB PO PRN ×2 (04:46→18:27)
[2018-09-19 05:25] LABS: Vancomycin, Random 11.2 ug/mL (See Comment)
[2018-09-19] MEDS: Vancomycin HCl 1 GM in Premix Bag 1 BAG IVPB SCH (05:32)
[2018-09-19] MEDS ORDERED: Vancomycin HCl 1.25 GM in Sodium Chloride 0.9% 250 ML 250 ML IVPB SCH (06:00)
[2018-09-19] MEDS: Promethazine HCl 25 MG SUPP PR PRN ×2 (06:35→15:28)
[2018-09-19] MEDS: Sucralfate 1 GM/10 ML UDCUP PO SCH ×4 (08:25→21:45)
[2018-09-19] MEDS: Hydrochlorothiazide 25 MG TAB PO SCH (08:26)
[2018-09-19] MEDS: Atenolol 50 MG TAB PO SCH ×2 (08:26→21:46)
[2018-09-19] MEDS: Cefepime 2 GM in Sodium Chloride 0.9% 100 ML IVPB SCH (08:27)
[2018-09-19] MEDS: Pantoprazole 40 MG VIAL IVP SCH ×2 (08:29→21:45)
--- NOTE | 2018-09-19 15:28 | PDOC.PN ---
- Subjective Encounter Start Date: 09/19/18 Encounter Start Time: 15:10 Subjective: f/u for indolent fever of unclear etiology and suspected due to -: diffuse esophagitis. Receiving Protonix, Carafate but still c/o -: dysphagia and pain. - Objective Resuscitation Status - Order Detail: 09/08/18 18:43 Resuscitation Status Routine Resuscitation Status: FULL: Full Resuscitation Discussed with: Patient MAR Reviewed: Yes Vital Signs & Weight: Vital Signs (12 hours) Temp Pulse Resp BP BP Pulse Ox 09/19/18 08:26 83 140/78 09/19/18 08:00 94 L 09/19/18 07:41 99.8 F H 83 18 140/78 94 L Weight Admit Weight 192 lb 11.2 oz Weight 205 lb I&O: 09/18/18 09/19/18 09/20/18 06:59 06:59 06:59 Intake Total 2230 920 Balance 2230 920 Result Diagrams: 09/16/18 07:26 09/15/18 04:30 Additional Labs: Microbiology 09/12/18 19:20 Nasopharyngeal swab Respiratory Virus Panel (PCR) - Final 09/12/18 15:32 Nasal swab Influenza Types A,B Direct EIA - Final 09/12/18 16:26 Venous blood - Right Arm Blood Culture - Preliminary Specimen has been received and culture in progress. No Growth to date. 09/12/18 16:26 Venous blood - Left Arm Blood Culture - Preliminary Specimen has been received and culture in progress. No Growth to date. Laboratory Tests 09/08/18 09/08/18 09/08/18 15:53 19:33 19:33 Sodium 121 L 124 L Potassium 2.0 L* 2.5 L* Creatine Kinase Hepatitis A IgM Ab Non-Reactive Hep Bs Antigen Non-Reactive Hep B Core IgM Ab Non-Reactive Hepatitis C Antibody Non-Reactive 09/09/18 09/10/18 09/10/18 04:19 04:22 15:34 Sodium 128 L 131 L Potassium 2.8 L* 2.8 L* Creatine Kinase 2768 H Hepatitis A IgM Ab Hep Bs Antigen Hep B Core IgM Ab Hepatitis C Antibody Phys Exam - Physical Examination anxious, alert, responsive HEENT: PERRLA, sclera anicteric, oral pharynx no lesions Neck: no nodes, no JVD, supple, full ROM Respiratory: no wheezing, no rales, no rhonchi, clear to auscultation bilateral S1, S2 Cardiovascular: RRR, no significant murmur, no rub, gallop Gastrointestinal: soft, non-tender, no distention, positive bowel sounds Musculoskeletal: pulses present, edema present Neurological: normal sensation, moves all 4 limbs tearful Psychiatric: A&O x 3 Skin: normal turgor, cap refill <2 seconds Dx/Plan (1) Febrile Code(s): R50.9 - FEVER, UNSPECIFIED Status: Acute Comment: Persistent, likely due to extensive esophagitis, Influenza neg, HIV negative, d/c Cefepime/ Diflucan (2) Erosive esophagitis Code(s): K22.10 - ULCER OF ESOPHAGUS WITHOUT BLEEDING Status: Acute Comment : Extensive esophagitis and gastritis noted on EGD, continue Protonix 40mg IV BID, continue Carafate, soft diet (3) Odynophagia Code(s): R13.10 - DYSPHAGIA, UNSPECIFIED Status: Acute Comment: Secondary to #1, see above for mgmt, Viscous Lidocaine, soft diet (4) Hypokalemia Code(s): E87.6 - HYPOKALEMIA Status: Acute Comment: KCL 40meq daily, repeat K+ level in am (5) Hyponatremia Code(s): E87.1 - HYPO-OSMOLALITY AND HYPONATREMIA Status: Acute Comment: Improving, continue to encourage increased po intake - 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
--- NOTE | 2018-09-19 17:09 | PRG ---
DATE OF SERVICE: 09/19/2018 SUBJECTIVE: Ms. Hawley is sitting on the bed. She is awake, still having the dyspeptic symptoms and heartburn symptoms associated with her esophagitis, but other than that she denies headaches. No cough. No back pain. No abdominal pain or diarrhea. No joint symptoms. OBJECTIVE: VITAL SIGNS: T-max 100.2. She is now 99.8, before that she was 100.8 a few days ago. Other vital signs are not particularly remarkable. HEENT: Ocular movements conjugate. Oral cavity normal. NECK: Supple. LUNGS: Symmetric, clear breath sounds. HEART: S1 and S2. Regular rate. No S3 or S4. ABDOMEN: Soft, not distended or tender. No ascites. No bladder distention. MUSCULOSKELETAL: No joint inflammatory activity. LABORATORY DATA: White cell count 5.7, hemoglobin 10.6 with MCV 113, platelets 394. Creatinine 0.63, calcium 8.1. Bilirubin 0.3, AST 43, ALT 66, CK 1500, albumin 3.2. Cortisol response was found to be normal. Lipase was normal and TSH was 7.2. HIV serology and hepatitis C serology negative. Respiratory virus PCR panel was negative. Gastric biopsy and esophageal biopsy showed ulcerated mucosa with extensive acute inflammation without any fungal forms. No H pylori was seen. ASSESSMENT: 1. Hypertension, unremitting nausea and vomiting for 10 days with severe esophagitis and gastritis. 2. Fever, which was present on admission. 3. Bandemia, which has resolved. 4. Rhabdomyolysis. 5. History of nephrolithiasis. DISCUSSION: Thus far, all the cultures are negative. The virus workup negative as well. The possibility of multiple endocrine neoplasia will be assessed with gastrin and PTH and an autoimmune syndrome such as adult Still disease is less likely, but may have to revisit that possibility depending on clinical progress. Autoimmune syndromes otherwise for example myositis associated with autoimmune syndromes may have to be considered as well depending on clinical progress. We will have to follow up CK until there is resolution of the CK elevation to make sure she does not actually have a myopathy. Job ID: [id number]
[2018-09-19] MEDS: Morphine 10 MG/0.5 ML ORAL SYRINGE SL PRN ×2 (17:13→21:45)
[2018-09-19] MEDS: Acetaminophen 325 MG TAB PO PRN (18:27)
[2018-09-20] MEDS: Morphine 10 MG/0.5 ML ORAL SYRINGE SL PRN ×5 (02:19→20:23)
[2018-09-20] MEDS: Lidocaine Viscous Sol 2% 15 ml UD Cup SSW PRN ×5 (02:19→20:20)
[2018-09-20] MEDS: Promethazine HCl 25 MG SUPP PR PRN ×3 (02:26→17:49)
[2018-09-20] MEDS: Hydrochlorothiazide 25 MG TAB PO SCH (08:52)
[2018-09-20] MEDS: Sucralfate 1 GM/10 ML UDCUP PO SCH ×4 (08:54→20:19)
[2018-09-20] MEDS: ALPRAZolam 0.5 MG TAB PO PRN (08:54)
[2018-09-20] MEDS: Atenolol 50 MG TAB PO SCH ×2 (08:54→20:19)
[2018-09-20] MEDS: Pantoprazole 40 MG VIAL IVP SCH (09:05)
[2018-09-20] MEDS: Acetaminophen 325 MG TAB PO PRN ×2 (10:43→20:19)
--- NOTE | 2018-09-20 15:51 | PDOC.PN ---
- Subjective Encounter Start Date: 09/20/18 Encounter Start Time: 14:30 Continues to have substantial pain in the upper esophagus. Tolerating liquids, but still struggles with regular consistency food. Taking Ensure tid. Pain is improving. Says she was out of her mind with pain initially. Pain meds not effective. Still "sipping" the viscous lidocaine. Feels like she is getting adequate fluids. Ambulating well. Understands that this may take some time to resolve. Still has intermittent nausea, but no further vomiting. Not able to sleep well due to waking with pain or nausea. Reported some soreness in lateral pectoralis muscles and in her inguinal areas when ambulating. Better now. - Objective Resuscitation Status - Order Detail: 09/08/18 18:43 Resuscitation Status Routine Resuscitation Status: FULL: Full Resuscitation Discussed with: Patient Vital Signs & Weight: Vital Signs (12 hours) Temp Pulse Resp BP BP Pulse Ox 09/20/18 12:43 100.3 F H 86 18 113/72 95 09/20/18 08:54 86 09/20/18 08:30 95 09/20/18 08:00 99.8 F H 86 18 136/81 95 09/20/18 04:44 99.1 F 90 16 155/90 H 97 Weight Admit Weight 192 lb 11.2 oz Weight 205 lb I&O: 09/19/18 09/20/18 09/21/18 06:59 06:59 06:59 Intake Total 920 2970 Balance 920 2970 Result Diagrams: 09/16/18 07:26 09/15/18 04:30 Phys Exam - Physical Examination Constitutional: NAD Respiratory: no wheezing, no rales, no rhonchi, clear to auscultation bilateral Cardiovascular: RRR, no significant murmur, no rub Gastrointestinal: soft, non-tender, no distention, positive bowel sounds 1+ Pitting edema. Compression stockings on. Neurological: non-focal, normal sensation Psychiatric: normal affect, A&O x 3 Skin: no rash, normal turgor Dx/Plan (1) Erosive esophagitis Code(s): K22.10 - ULCER OF ESOPHAGUS WITHOUT BLEEDING Status: Acute Comment : Extensive esophagitis and gastritis noted on EGD, continue Protonix 40mg IV BID, continue Carafate, soft diet (2) Rhabdomyolysis Code(s): M62.82 - RHABDOMYOLYSIS Status: Acute (3) Febrile Code(s): R50.9 - FEVER, UNSPECIFIED Status: Acute Comment: Persistent, likely due to extensive esophagitis, Influenza neg, HIV negative (4) Abnormal LFTs Code(s): R94.5 - ABNORMAL RESULTS OF LIVER FUNCTION STUDIES Status: Acute Comment: isolated transaminitis. Much improved. (5) Hypokalemia Code(s): E87.6 - HYPOKALEMIA Status: Resolved (6) Hyponatremia Code(s): E87.1 - HYPO-OSMOLALITY AND HYPONATREMIA Status: Acute (7) Odynophagia Code(s): R13.10 - DYSPHAGIA, UNSPECIFIED Status: Acute Comment: Secondary to #1, see above for mgmt, Viscous Lidocaine, soft diet (8) HTN (hypertension) Code(s): I10 - ESSENTIAL (PRIMARY) HYPERTENSION Status: Chronic Comment: controlled (9) Left-sided weakness Code(s): R53.1 - WEAKNESS Status: Resolved - Plan * Carafate, PPI. Will change protonix to granules. Viscous Lidocaine. * Roxanol. Will increase dose. Continue PRN IV. * PRN anti-emetics. * Dr. Perla following for fevers. Etiology still unclear. Gastrin level pending. May be due to the erosive esophagitis. Empiric abx. * Continue po's as tolerated. Appears to be adequate fluids and nutrition. * Recheck CK in am. * Difficult to get IV access. Oral hydration only now. * Consider outpatient treatment when ok with Dr. Perla.
[2018-09-20] MEDS ORDERED: Pantoprazole 40 MG GRANULES PACKET PO SCH (19:45)
[2018-09-21] MEDS: Promethazine HCl 25 MG SUPP PR PRN ×2 (02:01→09:40)
[2018-09-21] MEDS: Lidocaine Viscous Sol 2% 15 ml UD Cup SSW PRN ×5 (02:01→19:55)
[2018-09-21] MEDS: Morphine 10 MG/0.5 ML ORAL SYRINGE SL PRN ×6 (02:02→22:40)
[2018-09-21] MEDS: Sucralfate 1 GM/10 ML UDCUP PO SCH ×4 (08:32→19:54)
[2018-09-21] MEDS: Atenolol 50 MG TAB PO SCH ×2 (08:34→19:54)
[2018-09-21] MEDS: Hydrochlorothiazide 25 MG TAB PO SCH (08:35)
[2018-09-21] MEDS ORDERED: Pantoprazole 40 MG GRANULES PACKET PO SCH (09:00)
[2018-09-21] MEDS: Pantoprazole 40 MG GRANULES PACKET PO SCH (09:40)
[2018-09-21] MEDS: ALPRAZolam 0.5 MG TAB PO PRN (13:15)
[2018-09-21 15:56] LABS: Bilirubin Negative (Negative); Blood, Urine Negative (Negative); Clarity CLEAR (Clear); Glucose, Urine (Dipstick) Negative (Negative); Leukocyte Negative (Negative); Nitrite Negative (Negative); Protein, Urine (Dipstick) Negative (Neg-Trace); Specific Gravity, Urine 1.009 (1.002-1.036); Urobilinogen 0.2 mg/dL (0.2-1.0)
[2018-09-21 15:58] LABS: Bacteria/HPF None Seen HPF (None Seen); Hyaline Casts/LPF 0-3 HYALINE CAST LPF (0-3 Hyaline); RBC/HPF 0-3 HPF (0-3); Squamous Epithelial None Seen HPF (0-3); WBC/HPF None Seen HPF (0-3)
[2018-09-21 16:10] LABS: Urine Culture Reflex No No
[2018-09-21] MEDS: Ondansetron ODT 4 MG TAB PO PRN (22:39)
[2018-09-22] MEDS: Lidocaine Viscous Sol 2% 15 ml UD Cup SSW PRN ×3 (04:04→13:59)
[2018-09-22] MEDS: Morphine 10 MG/0.5 ML ORAL SYRINGE SL PRN ×3 (04:05→12:40)
[2018-09-22 08:16] VITALS: BP 145/78; TEMP 99.1
[2018-09-22] MEDS: Hydrochlorothiazide 25 MG TAB PO SCH (08:23)
[2018-09-22] MEDS: Atenolol 50 MG TAB PO SCH (08:26)
[2018-09-22] MEDS: Sucralfate 1 GM/10 ML UDCUP PO SCH ×2 (08:26→12:42)
[2018-09-22] MEDS: Pantoprazole 40 MG GRANULES PACKET PO SCH (08:26)
[2018-09-22] MEDS: Acetaminophen 325 MG TAB PO PRN (11:43)
--- NOTE | 2018-09-22 13:41 | PRG ---
DATE OF SERVICE: 09/22/2018 SUBJECTIVE: Better from the standpoint of her dyspepsia. No cough or sputum production or chest pain. No abdominal pain or diarrhea. No genitourinary symptoms. OBJECTIVE: VITAL SIGNS: T-max was 99.9. Other vital signs are normal. Blood pressure 145/78. LUNGS: Clear. HEART: S1, S2. Regular rate. ABDOMEN: Soft. LABORATORY DATA: Last chemistries from the , she does have hypoalbuminemia with elevated globulin mild and she does have macrocytosis, which has been consistently elevated. ASSESSMENT AND DISCUSSION: Hypertension, nausea and vomiting unremitting for 10 days with esophagitis and gastritis, fever low-grade, rhabdomyolysis. A gastrin level was normal. Cortisol was normal. We will submit vitamin B12 and folate, and follow up in the outpatient setting. Job ID: [id number]
[2018-09-22 14:12] LABS: Folate (Folic Acid) 10.9 ng/mL (7.0-31.4)
== END 2018-09-22 15:41 | disposition home or self-care (01) | DRG 381 ==
LOC: ERS 14:24 → 2SE 19:13 → T4-B 09-16 00:10
PROVIDERS: ADMIT Emergency Medicine; ATTEND Emergency Medicine
PROC: 0DB58ZX Excision of Esophagus, Via Natural or Artificial Opening Endoscopic, Diagnostic (ICD-10-PCS; principal; 2018-09-10)
PROC: 0DB78ZX Excision of Stomach, Pylorus, Via Natural or Artificial Opening Endoscopic, Diagnostic (ICD-10-PCS; 2018-09-10)
DX: K22.10 Ulcer of esophagus without bleeding (principal); I47.1 Supraventricular tachycardia; E87.1 Hypo-osmolality and hyponatremia; M62.82 Rhabdomyolysis; I10 Essential (primary) hypertension; E87.6 Hypokalemia; R13.10 Dysphagia, unspecified; K29.70 Gastritis, unspecified, without bleeding; F41.9 Anxiety disorder, unspecified; E86.0 Dehydration; Z88.0 Allergy status to penicillin; Z90.49 Acquired absence of other specified parts of digestive tract
CPT/HCPCS: 36415; 36416; 70450; 70491; 70496; 70498; 70551; 71045; 76705; 80048; 80053; 80061; 80074; 80076; 80202; 80306; 80307; 80400; 81001; 81003; 82140; 82330; 82550; 82607; 82746; 82803; 82941; 83605; 83690; 83735; 83880; 83970; 84439; 84443; 84481; 84484; 85007; 85025; 85027; 87040; 87086; 87389; 87633; 87804; 88305; 88312; 88313; 93005; 96365; 96366; 96367; 96375; C9113; J0692; J0834; J1450; J1650; J1885; J2250; J2270; J2405; J2550; J2704; J3370; J3475; J3480; J7050; Q0162; Q9966

== ENCOUNTER 2019-07-04 22:01 | Emergency (ER) | payer BC ==
[2019-07-04 23:18] LABS: #Basophils 0.1 thou/uL (0.0-0.2); #Eosinphils 0.1 thou/uL (0.0-0.7); #Lymphocytes 2.9 thou/uL (1.20-3.40); #Monocytes 0.7 thou/uL (0.11-0.59); #Neutrophils 4.9 thou/uL (1.40-6.50); %Eosinophils 0.8 % (0.0-10.0); %Lymphocytes 33.9 % (21.0-51.0); %Monocytes 7.9 % (0.0-10.0); %Neutrophils 56.4 % (42.0-75.0); Hemoglobin 13.4 g/dL (12.0-16.0); Mean Corpuscular HGB CONC 34.9 g/dL (32.0-36.0); Mean Corpuscular Hemoglobin 35.5 pg (27.0-31.0); Mean Platelet Volume 7.7 fL (7.4-10.4); Platelet Count 127 thou/uL (130-400); RBC Distribution Width 12.5 % (11.5-14.5); Red Blood Cell (RBC) Count 3.78 mill/uL (4.20-5.40); White Blood Cell (WBC) Count 8.7 thou/uL (4.8-10.8)
[2019-07-04 23:40] LABS: ALT (SGPT) 103 U/L (8-55); AST (SGOT) 74 U/L (5-34); Acetaminophen Less than 6.0 mcg/mL (10.0-30.0); Albumin 4.7 g/dL (3.5-5.0); Alcohol 270 mg/dL (Less than 10); Alkaline Phosphatase 64 U/L (40-110); Anion Gap 20 mmol/L (10-20); BUN (Urea Nitrogen) 14 mg/dL (9.8-20.1); Bilirubin, Total 0.6 mg/dL (0.2-1.2); CK (CPK) 201 U/L (29-168); Calc. Creatinine Clearance 0 mL/min (70-130); Calcium 9.5 mg/dL (7.8-10.44); Carbon Dioxide 21 mmol/L (22-29); Chloride 95 mmol/L (98-107); Estimated GFR-MDRD 67; Globulin 2.5 g/dL (2.4-3.5); Glucose 100 mg/dL (70-105); Potassium 4.7 mmol/L (3.5-5.1); Protein, Total 7.2 g/dL (6.0-8.3); Salicylate Less than 8.0 mg/dL (15.0-30.0); Sodium 131 mmol/L (136-145)
[2019-07-05] MEDS ORDERED: Ondansetron ODT 8 MG TAB ONE (00:02)
[2019-07-05 02:26] LABS: Amphetamine Not Detected (NotDetected); Barbiturates Screen Not Detected (NotDetected); Benzodiazepine Screen Not Detected (NotDetected); Cocaine Metabolite Screen Not Detected (NotDetected); Medtox Control Line Valid? VALID (VALID); Medtox Reader # READER 4; Methadone Not Detected (NotDetected); Methamphetamine Not Detected (NotDetected); Opiate Screen Not Detected (NotDetected); Oxycodone Screen Not Detected (NotDetected); Phencyclidine (PCP) Not Detected (NotDetected); THC/Cannabinoid Screen Not Detected (NotDetected); Tricyclic Screen Not Detected (NotDetected)
[2019-07-05 02:30] LABS: Bilirubin Negative (Negative); Blood, Urine Negative (Negative); Clarity Clear (Clear); Glucose, Urine (Dipstick) Normal (Negative); Leukocyte 75 Leu/uL (Negative); Nitrite Negative (Negative); Protein, Urine (Dipstick) Negative (Neg-Trace); RBC/HPF 0-3 HPF (0-3); Urobilinogen Normal mg/dL (Less than 2)
[2019-07-05 02:31] LABS: Bacteria/HPF 1+ HPF (None Seen)
[2019-07-05] MEDS ORDERED: chlordiazePOXIDE HCl 25 MG CAP PO SCH (11:30)
[2019-07-05] MEDS ORDERED: chlordiazePOXIDE HCl 25 MG CAP ONE (12:05)
== END 2019-07-05 12:11 | disposition home or self-care (01) ==
LOC: ERS 22:01
DX: F10.129 Alcohol abuse with intoxication, unspecified (principal); R11.10 Vomiting, unspecified; I49.9 Cardiac arrhythmia, unspecified; F41.9 Anxiety disorder, unspecified; Z79.899 Other long term (current) drug therapy
CPT/HCPCS: 36415; 80053; 80306; 80307; 81003; 81015; 82550; 84443; 85025; 99284

== ENCOUNTER 2021-01-03 19:10 | Inpatient (IN) | payer BC ==
[~2021-01-03 19:10] MED LIST changes: -ISOVUE-370 76%-LOCM 1 ML ONE; +Iopamidol-370 76% 500 ML 1 ML ONE
[2021-01-03] MEDS ORDERED: Promethazine HCl 25 MG/ML VIAL ONE (19:45)
[2021-01-03] MEDS ORDERED: Morphine 4 MG/ML VIAL ONE (20:17)
[2021-01-03 20:24] LABS: ALT (SGPT) 119 U/L (8-55); AST (SGOT) 140 U/L (5-34); Albumin 3.9 g/dL (3.5-5.0); Alkaline Phosphatase 93 U/L (40-110); Anion Gap 21 mmol/L (10-20); BUN (Urea Nitrogen) 10 mg/dL (9.8-20.1); Bilirubin, Total 2.2 mg/dL (0.2-1.2); Calc. Creatinine Clearance 0 mL/min (70-130); Calcium 8.6 mg/dL (7.8-10.44); Carbon Dioxide 23 mmol/L (22-29); Chloride 89 mmol/L (98-107); Globulin 2.9 g/dL (2.4-3.5); Glucose 145 mg/dL (70-105); Lipase 42 U/L (8-78); Potassium 3.3 mmol/L (3.5-5.1); Protein, Total 6.8 g/dL (6.0-8.3); Sodium 130 mmol/L (136-145)
[2021-01-03 20:26] LABS: Hemoglobin 14.5 g/dL (12.0-16.0); Mean Corpuscular Hemoglobin 37.7 pg (27.0-31.0); RBC Distribution Width 13.7 % (11.5-14.5); Red Blood Cell (RBC) Count 3.86 mill/uL (4.20-5.40)
[2021-01-03 20:31] LABS: #Basophils 0.1 thou/uL (0.0-0.2); #Lymphocytes 1.3 thou/uL (1.20-3.40); #Monocytes 0.8 thou/uL (0.11-0.59); %Basophils 0.7 % (0.0-1.0); %Eosinophils 0.4 % (0.0-10.0); %Monocytes 9.1 % (0.0-10.0); %Neutrophils 75.7 % (42.0-75.0); MDiff Complete? YES; Macrocytosis SLIGHT = 6-15 cells (100X) (0-5/hpf); Mean Platelet Volume 7.7 fL (7.4-10.4); Platelet Count 203 thou/uL (130-400); White Blood Cell (WBC) Count 9.3 thou/uL (4.8-10.8)
[2021-01-03] MEDS ORDERED: Pantoprazole 80 MG, Admixture Fee 1 EACH in Sodium Chloride 0.9% 100 ML IVPB SCH (22:30)
[2021-01-03 23:23] LABS: Bacteria/HPF 2+ HPF (None Seen); Bilirubin Negative (Negative); Blood, Urine Trace (Negative); Clarity Turbid (Clear); Glucose, Urine (Dipstick) Normal (Negative); Ketone, Urine 10 mg/dL (Negative); Leukocyte 500 Leu/uL (Negative); Nitrite Negative (Negative); Protein, Urine (Dipstick) Negative (Neg-Trace); RBC/HPF 0-3 HPF (0-3); Specific Gravity, Urine 1.028 (1.002-1.036); Squamous Epithelial 0-3 HPF (0-3); Urobilinogen Normal mg/dL (Less than 2); pH, Urine 6.5 (5.0-9.0)
[2021-01-04] MEDS: Morphine 4 MG/ML VIAL SLOW IVP PRN ×2 (00:41→04:47)
[2021-01-04] MEDS ORDERED: Mag-Al Plus 1200 MG/1200 MG/120 MG/30 ML UDCUP PO PRN (00:48)
[2021-01-04] MEDS: Promethazine HCl 25 MG/ML VIAL IM PRN ×2 (00:57→04:47)
[2021-01-04] MEDS ORDERED: Electrolyte Replacement Protocol 1 EACH FS SCH (01:00)
[2021-01-04 01:28] VITALS: BMI 24.3
[2021-01-04] MEDS: Lactated Ringer's 1,000 ML IV SCH ×3 (01:52→19:26)
[2021-01-04] MEDS: Potassium Chloride 20 MEQ in Premix Bag 1 BAG IVPB SCH ×3 (01:53→09:00)
[2021-01-04 03:30] LABS: SARS-CoV-2 NAA Rapid Test Not Detected (NotDetected)
[2021-01-04 06:09] LABS: #Monocytes 0.8 thou/uL (0.11-0.59); #Neutrophils 4.8 thou/uL (1.40-6.50); %Basophils 0.6 % (0.0-1.0); %Eosinophils 0.6 % (0.0-10.0); %Monocytes 10.7 % (0.0-10.0); Hemoglobin 13.3 g/dL (12.0-16.0); Mean Corpuscular HGB CONC 34.7 g/dL (32.0-36.0); Mean Corpuscular Hemoglobin 37.4 pg (27.0-31.0); Mean Platelet Volume 7.8 fL (7.4-10.4); Platelet Count 150 thou/uL (130-400); RBC Distribution Width 13.8 % (11.5-14.5); Red Blood Cell (RBC) Count 3.55 mill/uL (4.20-5.40); White Blood Cell (WBC) Count 7.7 thou/uL (4.8-10.8)
[2021-01-04 06:26] LABS: Anion Gap 18 mmol/L (10-20); BUN (Urea Nitrogen) 11 mg/dL (9.8-20.1); Calc. Creatinine Clearance 98 mL/min (70-130); Calcium 8.4 mg/dL (7.8-10.44); Carbon Dioxide 26 mmol/L (22-29); Chloride 95 mmol/L (98-107); Glucose 102 mg/dL (70-105); Magnesium 1.6 mg/dL (1.6-2.6); Potassium 3.9 mmol/L (3.5-5.1); Sodium 135 mmol/L (136-145)
[2021-01-04] MEDS ORDERED: Magnesium 2 GM/50 ML 2 GM in Premix Bag 1 BAG IVPB SCH (07:30)
[2021-01-04] MEDS: Pantoprazole 40 MG VIAL IVP SCH ×2 (08:53→19:27)
[2021-01-04] MEDS: HYDROcodone/Acetaminophen 5/325 mg Tablet PO PRN ×3 (08:54→20:39)
[2021-01-04 09:11] LABS: INR-International Normal Ratio 1.2
[2021-01-04] MEDS ORDERED: Promethazine HCl 25 MG/ML VIAL FS PRN (10:20)
[2021-01-04] MEDS: Ondansetron PF 4 MG/2 ML Vial IVP PRN ×2 (12:08→19:27)
[2021-01-04] MEDS ORDERED: Midazolam HCl 2 mg/2 ml Vial ONE ×2 (12:31→12:45)
[2021-01-04] MEDS ORDERED: Lidocaine 1% PF 5 ML VIAL ONE (12:48)
[2021-01-04] MEDS ORDERED: PROPOFOL 200 MG/20 ML VIAL ONE (12:48)
[2021-01-04] MEDS ORDERED: Promethazine HCl 25 MG/ML VIAL IM PRN (13:10)
[2021-01-04] MEDS ORDERED: Ondansetron HCl/PF 4 MG/2 ML Vial IVP PRN (13:10)
[2021-01-04] MEDS ORDERED: Promethazine HCl 25 MG/ML VIAL SLOW IVP PRN (13:10)
[2021-01-04] MEDS ORDERED: Promethazine HCl 12.5 MG in Sodium Chloride 0.9% 50 ML IVPB PRN (13:18)
[2021-01-04] MEDS ORDERED: Ondansetron PF 4 MG/2 ML Vial ONE (13:31)
[2021-01-04] MEDS ORDERED: Thiamine 100 MG TAB PO SCH (16:15)
[2021-01-04] MEDS ORDERED: Folic Acid 1 MG TAB PO SCH (16:30)
[2021-01-04] MEDS: Atenolol 25 MG TAB PO SCH (19:27)
[2021-01-05] MEDS: HYDROcodone/Acetaminophen 5/325 mg Tablet PO PRN ×3 (00:29→09:01)
[2021-01-05] MEDS: Ondansetron PF 4 MG/2 ML Vial IVP PRN (01:24)
[2021-01-05 05:59] LABS: Chloride 96 mmol/L (98-107); Potassium 3.5 mmol/L (3.5-5.1); Sodium 133 mmol/L (136-145)
[2021-01-05 06:00] LABS: Anion Gap 14 mmol/L (10-20); BUN (Urea Nitrogen) 14 mg/dL (9.8-20.1); Calc. Creatinine Clearance 99 mL/min (70-130); Calcium 8.7 mg/dL (7.8-10.44); Carbon Dioxide 27 mmol/L (22-29); Glucose 173 mg/dL (70-105)
[2021-01-05] MEDS: Potassium Chloride 20 MEQ in Premix Bag 1 BAG IVPB SCH ×2 (08:00→10:47)
[2021-01-05] MEDS: Lactated Ringer's 1,000 ML IV SCH ×2 (08:59→17:09)
[2021-01-05] MEDS: Thiamine 100 MG TAB PO SCH (09:01)
[2021-01-05] MEDS: Folic Acid 1 MG TAB PO SCH (09:01)
[2021-01-05] MEDS: Multivitamin W/ Minerals 1 TAB PO SCH (09:01)
[2021-01-05] MEDS: Atenolol 25 MG TAB PO SCH ×2 (09:02→21:07)
[2021-01-05] MEDS: Aluminum & Magnesium Hydroxide 60 ML, Lidocaine 2% Viscous Solution 30 ML, diphenhydrAM... SSW PRN ×2 (09:03→22:22)
[2021-01-05] MEDS: Pantoprazole 40 MG VIAL IVP SCH ×2 (09:03→21:01)
[2021-01-05] MEDS ORDERED: Lorazepam 2 MG/ML VIAL SLOW IVP PRN (12:15)
[2021-01-05] MEDS: Hydrocodone-Acetamin 15 ML UDCUP PO PRN ×2 (15:15→21:05)
[2021-01-05] MEDS: Sucralfate 1 GM/10 ML UDCUP PO SCH ×2 (17:10→21:01)
[2021-01-05] MEDS ORDERED: Docusate Sodium 10 MG/1 ML Oral Suspension PO SCH (21:00)
[2021-01-05] MEDS: Docusate Sodium 100 MG/10 ML UDCUP PO SCH (21:01)
[2021-01-06] MEDS: Lactated Ringer's 1,000 ML IV SCH (02:58)
[2021-01-06] MEDS: Hydrocodone-Acetamin 15 ML UDCUP PO PRN ×4 (02:58→22:07)
[2021-01-06 05:39] LABS: ALT (SGPT) 149 U/L (8-55); AST (SGOT) 281 U/L (5-34); Albumin 3.4 g/dL (3.5-5.0); Alkaline Phosphatase 84 U/L (40-110); Anion Gap 12 mmol/L (10-20); BUN (Urea Nitrogen) 8 mg/dL (9.8-20.1); Calc. Creatinine Clearance 103 mL/min (70-130); Calcium 8.9 mg/dL (7.8-10.44); Carbon Dioxide 25 mmol/L (22-29); Chloride 99 mmol/L (98-107); Globulin 2.9 g/dL (2.4-3.5); Glucose 122 mg/dL (70-105); Potassium 4.2 mmol/L (3.5-5.1); Protein, Total 6.3 g/dL (6.0-8.3); Sodium 132 mmol/L (136-145)
[2021-01-06] MEDS: Sucralfate 1 GM/10 ML UDCUP PO SCH ×4 (06:34→20:18)
[2021-01-06] MEDS: Multivitamin W/ Minerals 1 TAB PO SCH (09:42)
[2021-01-06] MEDS: Atenolol 25 MG TAB PO SCH ×2 (09:42→20:18)
[2021-01-06] MEDS: Thiamine 100 MG TAB PO SCH (09:43)
[2021-01-06] MEDS: Folic Acid 1 MG TAB PO SCH (09:43)
[2021-01-06] MEDS: Docusate Sodium 100 MG/10 ML UDCUP PO SCH ×2 (09:44→20:18)
[2021-01-06] MEDS: Pantoprazole 40 MG VIAL IVP SCH ×2 (09:44→20:18)
[2021-01-06] MEDS: Aluminum & Magnesium Hydroxide 60 ML, Lidocaine 2% Viscous Solution 30 ML, diphenhydrAM... SSW PRN ×3 (09:45→22:06)
[2021-01-06] MEDS: Ondansetron PF 4 MG/2 ML Vial IVP PRN (10:25)
[2021-01-07] MEDS: Hydrocodone-Acetamin 15 ML UDCUP PO PRN ×4 (04:00→22:22)
[2021-01-07] MEDS: Ondansetron PF 4 MG/2 ML Vial IVP PRN (04:05)
[2021-01-07] MEDS: Sucralfate 1 GM/10 ML UDCUP PO SCH ×4 (06:26→20:35)
[2021-01-07 06:52] LABS: ALT (SGPT) 102 U/L (8-55); AST (SGOT) 99 U/L (5-34); Albumin 3.1 g/dL (3.5-5.0); Alkaline Phosphatase 68 U/L (40-110); Anion Gap 11 mmol/L (10-20); BUN (Urea Nitrogen) 6 mg/dL (9.8-20.1); Bilirubin, Total 0.8 mg/dL (0.2-1.2); Calc. Creatinine Clearance 109 mL/min (70-130); Calcium 8.6 mg/dL (7.8-10.44); Carbon Dioxide 24 mmol/L (22-29); Chloride 103 mmol/L (98-107); Globulin 2.5 g/dL (2.4-3.5); Glucose 133 mg/dL (70-105); Potassium 3.4 mmol/L (3.5-5.1); Protein, Total 5.6 g/dL (6.0-8.3); Sodium 135 mmol/L (136-145)
[2021-01-07] MEDS ORDERED: Potassium Chloride 20 MEQ TAB PO SCH (07:00)
[2021-01-07 07:04] LABS: Prothrombin Time 13.2 sec (12.0-14.7)
[2021-01-07 07:07] LABS: Hemoglobin 11.4 g/dL (12.0-16.0); Mean Corpuscular HGB CONC 35.1 g/dL (32.0-36.0); Mean Corpuscular Hemoglobin 38.9 pg (27.0-31.0); Mean Platelet Volume 8.1 fL (7.4-10.4); Platelet Count 124 thou/uL (130-400); RBC Distribution Width 13.9 % (11.5-14.5); Red Blood Cell (RBC) Count 2.93 mill/uL (4.20-5.40)
[2021-01-07 08:18] LABS: Band 7 % (5-11); Eosinophils 2 % (0-10); Lymphocytes 34 % (21-51); MDiff Complete? YES; Macrocytosis SLIGHT = 6-15 cells (100X) (0-5/hpf); Monocytes 25 % (0-10); Neutrophil 31 % (42-75); Platelet Morphology Comment Appears Decreased; Reactive Lymphocytes 1 % (0-10)
[2021-01-07] MEDS: Folic Acid 1 MG TAB PO SCH (09:02)
[2021-01-07] MEDS: Pantoprazole 40 MG GRANULES PACKET PO SCH ×2 (09:02→20:34)
[2021-01-07] MEDS: Atenolol 25 MG TAB PO SCH ×2 (09:02→20:36)
[2021-01-07] MEDS: Thiamine 100 MG TAB PO SCH (09:02)
[2021-01-07] MEDS: Docusate Sodium 100 MG/10 ML UDCUP PO SCH ×2 (09:02→20:35)
[2021-01-07] MEDS: Multivitamin W/ Minerals 1 TAB PO SCH (09:02)
[2021-01-07] MEDS: Aluminum & Magnesium Hydroxide 60 ML, Lidocaine 2% Viscous Solution 30 ML, diphenhydrAM... SSW PRN ×3 (09:03→23:50)
[2021-01-07] MEDS: Ondansetron ODT 4 MG TAB PO PRN ×2 (12:18→22:22)
[2021-01-07] MEDS: Bisacodyl 10 MG SUPP PR PRN ×2 (16:15→23:50)
[2021-01-08] MEDS: Hydrocodone-Acetamin 15 ML UDCUP PO PRN (04:14)
[2021-01-08] MEDS: Ondansetron ODT 4 MG TAB PO PRN ×3 (04:17→19:52)
[2021-01-08] MEDS: Sucralfate 1 GM/10 ML UDCUP PO SCH ×4 (06:35→20:42)
[2021-01-08] MEDS: Pantoprazole 40 MG GRANULES PACKET PO SCH ×2 (08:43→19:46)
[2021-01-08] MEDS: Thiamine 100 MG TAB PO SCH (08:43)
[2021-01-08] MEDS: Docusate Sodium 100 MG/10 ML UDCUP PO SCH ×2 (08:43→20:42)
[2021-01-08] MEDS: Multivitamin W/ Minerals 1 TAB PO SCH (08:43)
[2021-01-08] MEDS: Folic Acid 1 MG TAB PO SCH (08:43)
[2021-01-08] MEDS: Atenolol 25 MG TAB PO SCH ×2 (08:47→19:49)
[2021-01-08 09:57] LABS: Anion Gap 10 mmol/L (10-20); BUN (Urea Nitrogen) 8 mg/dL (9.8-20.1); Calc. Creatinine Clearance 103 mL/min (70-130); Calcium 8.8 mg/dL (7.8-10.44); Carbon Dioxide 28 mmol/L (22-29); Chloride 102 mmol/L (98-107); Glucose 136 mg/dL (70-105); Potassium 3.8 mmol/L (3.5-5.1); Sodium 136 mmol/L (136-145)
[2021-01-08] MEDS: Aluminum & Magnesium Hydroxide 60 ML, Lidocaine 2% Viscous Solution 30 ML, diphenhydrAM... SSW PRN ×2 (11:46→18:00)
[2021-01-08] MEDS: Acetaminophen 325 MG TAB PO PRN ×2 (12:08→21:49)
[2021-01-09 05:25] LABS: Anion Gap 10 mmol/L (10-20); BUN (Urea Nitrogen) 8 mg/dL (9.8-20.1); Calc. Creatinine Clearance 108 mL/min (70-130); Calcium 8.6 mg/dL (7.8-10.44); Carbon Dioxide 27 mmol/L (22-29); Chloride 104 mmol/L (98-107); Glucose 162 mg/dL (70-105); Potassium 3.6 mmol/L (3.5-5.1); Sodium 137 mmol/L (136-145)
[2021-01-09] MEDS: Aluminum & Magnesium Hydroxide 60 ML, Lidocaine 2% Viscous Solution 30 ML, diphenhydrAM... SSW PRN ×2 (05:43→12:34)
[2021-01-09] MEDS: Sucralfate 1 GM/10 ML UDCUP PO SCH ×2 (06:30→12:34)
[2021-01-09] MEDS: Ondansetron ODT 4 MG TAB PO PRN (06:30)
[2021-01-09] MEDS: Atenolol 25 MG TAB PO SCH (08:35)
[2021-01-09] MEDS: Pantoprazole 40 MG GRANULES PACKET PO SCH (08:36)
[2021-01-09] MEDS: Docusate Sodium 100 MG/10 ML UDCUP PO SCH (08:36)
[2021-01-09] MEDS: Thiamine 100 MG TAB PO SCH (10:00)
[2021-01-09] MEDS: Folic Acid 1 MG TAB PO SCH (10:00)
[2021-01-09] MEDS: Multivitamin W/ Minerals 1 TAB PO SCH (10:00)
[2021-01-09 11:24] VITALS: BP 101/69; TEMP 99.7
== END 2021-01-09 14:04 | disposition home or self-care (01) | DRG 381 ==
LOC: ERS 19:10 → INTOOBSV 22:57 → SURG A 22:57 → OBSVTOIN 22:57
PROVIDERS: ADMIT Student in an Organized Health Care Education/Training Program; ATTEND Internal Medicine
PROC: 0DB58ZX Excision of Esophagus, Via Natural or Artificial Opening Endoscopic, Diagnostic (ICD-10-PCS; principal; 2021-01-04)
PROC: 0DB68ZX Excision of Stomach, Via Natural or Artificial Opening Endoscopic, Diagnostic (ICD-10-PCS; 2021-01-04)
DX: K22.11 Ulcer of esophagus with bleeding (principal); E87.1 Hypo-osmolality and hyponatremia; I47.1 Supraventricular tachycardia; R13.10 Dysphagia, unspecified; I10 Essential (primary) hypertension; F10.10 Alcohol abuse, uncomplicated; Z20.822 Contact with and (suspected) exposure to COVID-19; K59.00 Constipation, unspecified; F12.10 Cannabis abuse, uncomplicated; K76.0 Fatty (change of) liver, not elsewhere classified; K44.9 Diaphragmatic hernia without obstruction or gangrene; E86.9 Volume depletion, unspecified; K70.30 Alcoholic cirrhosis of liver without ascites; E87.6 Hypokalemia; S92.341A Displaced fracture of fourth metatarsal bone, right foot, initial encounter for closed fracture; X58.XXXA Exposure to other specified factors, initial encounter; Z88.0 Allergy status to penicillin; Z79.899 Other long term (current) drug therapy; Z95.828 Presence of other vascular implants and grafts; Z87.442 Personal history of urinary calculi; Z90.49 Acquired absence of other specified parts of digestive tract; Z90.710 Acquired absence of both cervix and uterus; K29.71 Gastritis, unspecified, with bleeding
CPT/HCPCS: 36415; 74177; 80048; 80053; 81003; 81015; 82105; 82274; 83690; 83735; 85025; 85610; 85730; 87077; 87086; 87186; 88305; 88312; 88313; 88342; 96365; 96367; 96372; 96375; 96376; C9113; G0378; J2060; J2250; J2270; J2405; J2550; J2704; J3475; J3480; J3490; Q0162; Q0163; Q9967; U0002

== ENCOUNTER 2022-04-14 04:50 | Emergency (ER) | payer BC ==
[2022-04-14] MEDS ORDERED: EPINEPHrine 1 MG/10 ML Abboject SYRINGE ONE (04:52)
== END 2022-04-14 05:01 | disposition expired ==
LOC: ERS 04:50
DX: K92.2 Gastrointestinal hemorrhage, unspecified (principal); I46.8 Cardiac arrest due to other underlying condition
CPT/HCPCS: 31500; 92950; 96374; J0171